=== PATIENT | female | born 1990 | race Caucasian/White ===

== ENCOUNTER 2018-10-03 15:20 | Emergency (ER) | payer MEDICAID, SELFPAY ==
[2018-10-03 15:23] VITALS: BP 119/68; PULSE 94; RESP 12; TEMP 36.5; O2SAT 97
--- NOTE | 2018-10-03 16:21 | ED.GENADUL_ITS ---
Discharge Plan Disposition Patient Disposition: HOME Condition: Fair Discharge Details Chief Complaint: Nk/Back Pain Clinical Impression: Muscle spasms of neck, Acute neck pain Primary Care Provider: Katie Campbell ED Provider: Ame Duggan Home Meds and New Rx's Prescriptions: New ibuprofen 600 mg tablet 600 mg PO QID PRN (Reason: pain) Qty: 20 RF: 0 diazepam [Valium] 5 mg tablet 5 mg PO TID Qty: 7 RF: 0 Continued sertraline 50 MG tablet 50 mg PO DAILY RF: 0 Discharge Instructions Instructions: Diazepam (By mouth), Neck Pain (ED) Additional Instructions: Encourage hydration. Take 1,000mg of Tylenol every 6 hours as needed, 600mg of IBuprofen every 6 hours as needed for discomfort. Valium as prescribed for muscle spasm, do not breast feed while taking this medication. Stretching as advised, frequent ambulation. Heat or ice to affected area. If you develop altered sensation, increased pain or other new/worsening symptoms please seek care urgently once again. PT referral attached. If your symptoms persist over the next week please follow up with primary care. Stand Alone Forms: Physical Therapy Referral, Work Release Referrals: Katie Campbell [Primary Care Provider] - Discharge Data Discharge Date/Time-TO BE ENTERED AT DEPARTURE: 10/03/18 17:43 Medical Decision Making Patient 28-year-old female presenting today with chief complaint of right-sided neck pain. She reports that yesterday, while at work, she was cleaning while up on a ladder. States that she had a sudden twisting motion and effort to catch herself pole of the right side of her neck. States that last night the pain was minimal. She was treating last night with Tylenol and ibuprofen as well as a heat pad. However, when she woke today she noted she was unable to turn her head. Patient has very limited range of motion particularly with rotational movements. Head is more comfortable slightly tilted to the right. She denies any altered sensation. No midline tenderness. Pain seems to be more along the trapezius radiating down the mid thoracic area. Good range of motion of the thoracic spine without discomfort. Patient is also having limited range of motion of the right shoulder as described increased pain in the right lateral side of the neck. Denies any fall or other injury at the time of the incident. Patient is actively breast-feeding. Neuro exam is intact Patient is breast-feeding, this does limit our treatment options. However, the patient reports she has a large supply at home and prefer treatment and disposing of milk over holding off on treatment at this time. Patient has been taking minimal doses of Tylenol and ibuprofen. I will augment the used to appropriate dosing, apply Lidoderm patch and Valium. We did discuss the risks and benefits associated with medication, particularly Valium, and its risks associated to if she continues to breast-feed AFter medication, patient is feeling improved. Her ROM is greatly improved. She is satisfied with this improvement and is requesting discharge at this time. ROM exercises given, she was able to demonstrate these in the office. Encouraged massage, heat/ice. Advised on home remedies and OTC medications that can help with these symptoms. Valium was very successful, will give small amount ot help with acute muscle spasm. PT referral given. Encouraged hydration. ADvised f/u with PCP in one week if symptoms persist. All of her questions and concerns were addressed, she is in agreement with this plan. HPI General Mode of arrival: ambulatory . Date/Time Provider Initiated Documentation: 10/03/18 15:42 . Limitations to Documentation: no limitations . Information obtained by: patient . History of Present Illness 28 year old F presents to the emergency department with the chief complaint of right sided neck pain, described as severe, Quality is described as aching and other (tight), and is localized to the neck. Patient reports radiation to back (right side upper back). Patient started experiencing this day(s) (1) and it has been constant. No relieving factors improve symptom(s), Immoblization worsens symptoms and Movement worsens symptoms . Patient notes denies chest pain, cough, fever/chills, headaches, loss of appetite, nausea/vomiting, rash, shortness of breath and weakness. Patient did receive the following treatments prior to arrival, NSAID and heat therapy Related Data Home Medications Medication Instructions Recorded Confirmed sertraline 50 mg PO DAILY 10/31/17 10/03/18 diazepam [Valium] 5 mg PO TID #7 tab 10/03/18 ibuprofen 600 mg PO QID PRN #20 tab 10/03/18 Previous Rx's Medication Instructions Recorded diazepam [Valium] 5 mg PO TID #7 tab 10/03/18 ibuprofen 600 mg PO QID PRN #20 tab 10/03/18 Allergies Allergy/AdvReac Type Severity Reaction Status Date / Time spironolactone AdvReac Intermediate Diarrhea Verified 10/03/18 15:26 metformin AdvReac Diarrhea Verified 10/03/18 15:26 General Stated Complaint: Nk/Back Pain VISHNU: 4 Review of Systems Constitutional Reports as per HPI, Denies chills, Denies fever(s), Denies headache(s) and Denies weakness ENT Denies headache(s) and Reports neck pain Cardiovascular Reports as per HPI Respiratory Reports as per HPI and Denies cough Musculoskeletal Reports as per HPI, Reports back pain, Denies deformity, Denies joint swelling, Reports limited range of motion, Reports muscle cramps, Denies muscle weakness, Reports neck pain, Denies numbness, Denies radiating pain into limb, Reports stiffness and Denies tingling Integumentary/Breasts Reports as per HPI, Denies rash and Denies wounds Neurologic Denies headache(s), Denies numbness, Denies tingling and Denies weakness [facility] Social History Smoking/Tobacco Use Status: Current every day Exam Const General: cooperative, healthy appearing, comfortable, no acute distress, well developed and well groomed Nutritional Appearance: average body habitus and well nourished Orientation: alert and awake Neck Neck: limited ROM (limited ROM in all avila), no lymphadenopathy, trachea midline, supple, no anterior neck swelling and no lymphadenopathy noted Thyroid: thyroid normal Chest Chest: normal inspection of the chest, normal palpation of entire chest wall, no crepitus, no localized rib tenderness, no tenderness and No rash Resp Effort & Inspection: normal respiratory effort, able to speak in complete sentences and no respiratory distress Auscultation: clear to auscultation bilaterally, no rales, no rhonchi and no wheezes Cardio Rate: regular rate Rhythm: regular rhythm Heart Sounds: S1 normal and S2 normal Back/Spine/Pelvis Back: no CVA tenderness Cervical Spine: No cervical ROM normal (right sided [place]), cervical muscular tenderness, pain with cervical ROM, No scars present, cervical spasm (right side) and No cervical spinal tenderness (pain lateral to midline) Thoracic/Lumbar Spine: thoracic and lumbar spine normal to inspection and thoraco-lumbar ROM normal Skin General skin exam: no rashes or lesions noted Lesions: no lesions Rashes: no rashes Trauma: no lacerations or abrasions Neuro General: alert and awake Cognition: normal cognition Speech: speech normal Gait: normal gait Motor: muscle tone normal throughout Sensory Exam: no sensory deficits noted Extrem Right upper extremity: normal capillary refill, no joint enlargement, shoulder/upper arm Details: normal to inspection; no tenderness, no swelling and ROM limited (limited as above) and elbow/forearm Details: normal to inspection and normal ROM; ROM limited (FE causes discomfort in the right side of the neck, no pain with palpation.) Psych Appearance: grossly normal and well kempt Mental Status: mental status grossly normal Speech and Movement: speech and movement normal Course Vital Signs Temperature 36.5 C 10/03/18 15:23 Pulse 94 H 10/03/18 15:23 Respiratory Rate 12 10/03/18 15:23 Blood Pressure 119/68 10/03/18 15:23 Pulse Oximetry 97 10/03/18 15:23 Temperature 36.5 C 10/03/18 15:23 Temperature Source Temporal Artery Scan 10/03/18 15:23 Pulse 94 H 10/03/18 15:23 Respiratory Rate 12 10/03/18 15:23 Respiratory Effort Non-Labored 10/03/18 15:25 Blood Pressure 119/68 10/03/18 15:23 Blood Pressure Position Sitting 10/03/18 15:23 Pulse Oximetry 97 10/03/18 15:23 Oxygen Delivery Method Room Air 10/03/18 15:23 Oxygen Flow Rate 0 10/03/18 15:23 Pain Level 8 10/03/18 15:27
[2018-10-03] MEDS: Acetaminophen 500 MG TAB PO (16:33)
[2018-10-03] MEDS: Ibuprofen 400 MG TAB PO (16:33)
[2018-10-03] MEDS: Lidocaine 5% Patch 1 PATCH TP ×2 (16:33→17:39)
[2018-10-03] MEDS: Diazepam 5 MG TAB PO (16:33)
[2018-10-03] MEDS: Diazepam 5 MG TAB 10 MG PO (17:38)
== END 2018-10-03 17:43 | disposition home or self-care (01) ==
PROVIDERS: Emergency Provider Physician Assistant; PCP Nurse Practitioner Adult Health
DX: M54.2 Cervicalgia (principal); M62.838 Other muscle spasm; Y99.0 Civilian activity done for income or pay
CPT/HCPCS: 99283

== ENCOUNTER 2018-10-19 13:01 | Emergency (ER) | payer OTHER, SELFPAY ==
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
[2018-10-19 13:10] VITALS: BP 117/60; PULSE 74; RESP 16; TEMP 36.5; O2SAT 99
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
[2018-10-19] MEDS: Ibuprofen 600 MG TAB PO (13:22)
== END 2018-10-19 14:02 | disposition home or self-care (01) ==
PROVIDERS: Emergency Provider Emergency Medicine; PCP Nurse Practitioner Adult Health
DX: S16.1XXA Strain of muscle, fascia and tendon at neck level, initial encounter (principal); M54.6 Pain in thoracic spine; V43.12XA Car passenger injured in collision with other type car in nontraffic accident, initial encounter
CPT/HCPCS: 99284; 71046; 72125; L0172

== ENCOUNTER 2019-03-04 14:28 | Emergency (ER) | payer OTHER, SELFPAY ==
[2019-03-04 14:36] VITALS: BP 115/60; PULSE 73; RESP 16; TEMP 36.9; O2SAT 96
--- NOTE | 2019-03-04 14:56 | W.ED.GENAD ---
Discharge Plan Disposition Patient Disposition: HOME Condition: Stable Discharge Details Chief Complaint: Orthopedic Clinical Impression: Sprain of right shoulder Primary Care Provider: Katie Campbell ED Provider: Carlyle aMncini Home Meds and New Rx's Prescriptions: No Action ibuprofen 600 mg tablet 600 mg PO QID PRN (Reason: pain) Qty: 20 RF: 0 diazepam [Valium] 5 mg tablet 5 mg PO TID Qty: 7 RF: 0 sertraline 50 MG tablet 50 mg PO DAILY RF: 0 Discharge Instructions Instructions: Shoulder Sprain (ED) Additional Instructions: follow up with your primary care provider within 2 weeks especially if pain continues you can take 1000mg tylenol and 600mg ibuprofen every 6 hours for pain as needed if you have severe worsening symptoms or new symptoms such as difficulty breathing return to the emergency department Stand Alone Forms: Work Release Medical Decision Making 28 yo female states she was working at [employer] and 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 Denies any falls or other trauma. Has pain in the posterior right shoulder, full rom though with pain, no erythema, warmth or fevers to suggest septic joint and given lack of trauma doubt fx and do not feel xray indicated. Has intact distal pulses and sensation so doubt neurovascular injury. I suspect shoulder strain vs overuse injury vs less likely rotator cuff injury. Will have her f/u with pcp and return if new symptoms develop Differential Diagnosis strain, rotator cuff injury HPI General Mode of arrival: ambulatory. Date/Time Provider Initiated Documentation: 03/04/19 14:44. Limitations to Documentation: no limitations. Information obtained by: patient. History of Present Illness 28 year old F presents to the emergency department with the chief complaint of right shoulder pain, described as moderate, Quality is described as aching, and is localized to the right and upper extremity. Patient started experiencing this day(s) (1) and it has been constant. Rest improves symptom(s), Movement worsens symptoms . Patient notes no other symptoms.. Patient did receive the following treatments prior to arrival, NSAID Related Data Home Medications Medication Instructions Recorded Confirmed sertraline 50 mg PO DAILY 10/31/17 03/04/19 diazepam [Valium] 5 mg PO TID #7 tab 10/03/18 03/04/19 ibuprofen 600 mg PO QID PRN #20 tab 10/03/18 03/04/19 Previous Rx's Medication Instructions Recorded diazepam [Valium] 5 mg PO TID #7 tab 10/03/18 ibuprofen 600 mg PO QID PRN #20 tab 10/03/18 Allergies Allergy/AdvReac Type Severity Reaction Status Date / Time spironolactone AdvReac Intermediate Diarrhea Verified 03/04/19 14:39 metformin AdvReac Diarrhea Verified 03/04/19 14:39 General Stated Complaint: Orthopedic VISHNU: 4 Review of Systems Review of Systems All systems reviewed & are unremarkable except as noted in HPI and below Constitutional Denies chills, Denies fever(s) and Denies weakness Cardiovascular Denies chest pain and Denies dyspnea Respiratory Denies dyspnea Gastrointestinal Denies vomiting Neurologic Denies weakness PFS Social History Smoking/Tobacco Use Status: Current every day Drug use: Never Do you feel safe in your relationship?: Yes Exam Const General: no acute distress Orientation: alert HENMT Head: normal to inspection Ears: external ears normal General nose exam: external nose normal Mouth: moist mucous membranes Eyes General: appearance normal, both eyes and all related structures Neck Neck: normal visual inspection Resp Effort & Inspection: normal respiratory effort and able to speak in complete sentences Cardio Rate: regular rate Skin General skin exam: no rashes or lesions noted Neuro General: alert and oriented x3 Extrem General: normal to inspection Psych Mental Status: mental status grossly normal Course Vital Signs Temperature 36.9 C 03/04/19 14:36 Pulse 73 03/04/19 14:36 Respiratory Rate 16 03/04/19 14:36 Blood Pressure 115/60 03/04/19 14:36 Pulse Oximetry 96 03/04/19 14:36 Temperature 36.9 C 03/04/19 14:36 Temperature Source Skin 03/04/19 14:36 Pulse 73 03/04/19 14:36 Respiratory Rate 16 03/04/19 14:36 Respiratory Effort Non-Labored 03/04/19 14:36 Blood Pressure 115/60 03/04/19 14:36 Blood Pressure Position Sitting 03/04/19 14:36 Pulse Oximetry 96 03/04/19 14:36 Oxygen Delivery Method Room Air 03/04/19 14:36 Oxygen Flow Rate 0 03/04/19 14:36 Pain Level 7 03/04/19 14:36
--- NOTE | 2019-03-04 15:00 | ED.GENADUL_ITS ---
Discharge Plan Disposition Patient Disposition: HOME Condition: Stable Discharge Details Chief Complaint: Orthopedic Clinical Impression: Sprain of right shoulder Primary Care Provider: Katie Campbell ED Provider: Carlyle Mancini Home Meds and New Rx's Prescriptions: No Action ibuprofen 600 mg tablet 600 mg PO QID PRN (Reason: pain) Qty: 20 RF: 0 diazepam [Valium] 5 mg tablet 5 mg PO TID Qty: 7 RF: 0 sertraline 50 MG tablet 50 mg PO DAILY RF: 0 Discharge Instructions Instructions: Shoulder Sprain (ED) Additional Instructions: follow up with your primary care provider within 2 weeks especially if pain continues you can take 1000mg tylenol and 600mg ibuprofen every 6 hours for pain as needed if you have severe worsening symptoms or new symptoms such as difficulty breathing return to the emergency department Stand Alone Forms: Work Release Medical Decision Making 28 yo female states she was working at [employer] and 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 Denies any falls or other trauma. Has pain in the posterior right shoulder, full rom though with pain, no erythema, warmth or fevers to suggest septic joint and given lack of trauma doubt fx and do not feel xray indicated. Has intact distal pulses and sensation so doubt neurovascular injury. I suspect shoulder strain vs overuse injury vs less likely rotator cuff injury. Will have her f/u with pcp and return if new symptoms develop Differential Diagnosis strain, rotator cuff injury HPI General Mode of arrival: ambulatory . Date/Time Provider Initiated Documentation: 03/04/19 14:44 . Limitations to Documentation: no limitations . Information obtained by: patient . History of Present Illness 28 year old F presents to the emergency department with the chief complaint of right shoulder pain, described as moderate, Quality is described as aching, and is localized to the right and upper extremity. Patient started experiencing this day(s) (1) and it has been constant. Rest improves symptom(s), Movement worsens symptoms . Patient notes no other symptoms.. Patient did receive the following treatments prior to arrival, NSAID Related Data Home Medications Medication Instructions Recorded Confirmed sertraline 50 mg PO DAILY 10/31/17 03/04/19 diazepam [Valium] 5 mg PO TID #7 tab 10/03/18 03/04/19 ibuprofen 600 mg PO QID PRN #20 tab 10/03/18 03/04/19 Previous Rx's Medication Instructions Recorded diazepam [Valium] 5 mg PO TID #7 tab 10/03/18 ibuprofen 600 mg PO QID PRN #20 tab 10/03/18 Allergies Allergy/AdvReac Type Severity Reaction Status Date / Time spironolactone AdvReac Intermediate Diarrhea Verified 03/04/19 14:39 metformin AdvReac Diarrhea Verified 03/04/19 14:39 General Stated Complaint: Orthopedic VISHNU: 4 Review of Systems Review of Systems All systems reviewed & are unremarkable except as noted in HPI and below Constitutional Denies chills, Denies fever(s) and Denies weakness Cardiovascular Denies chest pain and Denies dyspnea Respiratory Denies dyspnea Gastrointestinal Denies vomiting Neurologic Denies weakness PFS Social History Smoking/Tobacco Use Status: Current every day Drug use: Never Do you feel safe in your relationship?: Yes Exam Const General: no acute distress Orientation: alert HENMT Head: normal to inspection Ears: external ears normal General nose exam: external nose normal Mouth: moist mucous membranes Eyes General: appearance normal, both eyes and all related structures Neck Neck: normal visual inspection Resp Effort & Inspection: normal respiratory effort and able to speak in complete sentences Cardio Rate: regular rate Skin General skin exam: no rashes or lesions noted Neuro General: alert and oriented x3 Extrem General: normal to inspection Psych Mental Status: mental status grossly normal Course Vital Signs Temperature 36.9 C 03/04/19 14:36 Pulse 73 03/04/19 14:36 Respiratory Rate 16 03/04/19 14:36 Blood Pressure 115/60 03/04/19 14:36 Pulse Oximetry 96 03/04/19 14:36 Temperature 36.9 C 03/04/19 14:36 Temperature Source Skin 03/04/19 14:36 Pulse 73 03/04/19 14:36 Respiratory Rate 16 03/04/19 14:36 Respiratory Effort Non-Labored 03/04/19 14:36 Blood Pressure 115/60 03/04/19 14:36 Blood Pressure Position Sitting 03/04/19 14:36 Pulse Oximetry 96 03/04/19 14:36 Oxygen Delivery Method Room Air 03/04/19 14:36 Oxygen Flow Rate 0 03/04/19 14:36 Pain Level 7 03/04/19 14:36
== END 2019-03-04 15:15 | disposition home or self-care (01) ==
PROVIDERS: Emergency Provider Emergency Medicine; PCP Nurse Practitioner Adult Health
DX: S43.401A Unspecified sprain of right shoulder joint, initial encounter (principal); X50.0XXA Overexertion from strenuous movement or load, initial encounter
CPT/HCPCS: 99282; L3650

== ENCOUNTER 2019-04-14 13:59 | Outpatient (CLI) | payer OTHER, SELFPAY ==
--- NOTE | 2019-04-14 13:25 | DI.RAD_ITS ---
SYMPTOMS/DIAGNOSIS: SHOULDER INJURY RIGHT SHOULDER: There is no evidence of a fracture or dislocation. No bony or joint abnormality is identified.
== END 2019-04-14 14:19 ==
PROVIDERS: PCP Nurse Practitioner Adult Health; Visit Provider Student in an Organized Health Care Education/Training Program
DX: S49.91XA Unspecified injury of right shoulder and upper arm, initial encounter (principal); M25.511 Pain in right shoulder
CPT/HCPCS: 73030

== ENCOUNTER 2019-05-25 00:41 | Outpatient (CLI) | payer MEDICAID, SELFPAY ==
--- NOTE | 2019-05-25 09:00 | DI.MRI_ITS ---
SYMPTOM/DIAGNOSIS: STRAIN RT SHOULDER S46.911d MRI RIGHT SHOULDER: Comparison is made with plain film dated 14 April 2019. Proton density and FS T2 axial and coronal and T1 FS T2 sagittal sequences were performed. There is some thickening and high signal in supraspinatus tendon which could represent a partial tear vs tendinitis. The infraspinatus, subscapularis and biceps tendons appear intact. No gross labral defects are seen. There is no joint effusion. IMPRESSION: Partial tear vs tendinitis of the supraspinatus.
== END 2019-05-25 01:01 ==
PROVIDERS: PCP Nurse Practitioner Adult Health; Visit Provider Family Medicine
DX: M25.511 Pain in right shoulder (principal); S46.911A Strain of unspecified muscle, fascia and tendon at shoulder and upper arm level, right arm, initial encounter
CPT/HCPCS: 73221

== ENCOUNTER 2019-08-02 22:45 | Emergency (ER) | payer OTHER, SELFPAY ==
[2019-08-02 22:52] VITALS: BP 121/76; PULSE 76; RESP 18; TEMP 36.4; O2SAT 100
--- NOTE | 2019-08-02 23:08 | ED.GENADUL_ITS ---
Discharge Plan Disposition Patient Disposition: HOME Condition: Good Discharge Details Chief Complaint: GenMedical Clinical Impression: Chemical burn Primary Care Provider: Katie Campbell ED Provider: Sukhjinder Christensen Discharge Instructions Additional Instructions: Continue irrigation at home until pain has mostly resolved. Apply antibiotic ointment to the red area and keep covered. Use ibuprofen or acetaminophen for discomfort. Return to the emergency department if you develop increasing pain, redness, skin sloughing, swelling, other concerns or problems. Stand Alone Forms: Work Release Medical Decision Making Patient discussed with poison control. This is a corrosive alkali. Recommendation is to continue flushing irrigation until burning sensation resolved and then treat skin lesions as a burn. Patient taken to [place] shower where she continued to irrigate. Reports pain is better. Would like to go home and continue showering at her house. Will give Motrin here. Recommend antibiotic ointment to area of redness. Return to ED if increasing pain, redness, swelling, other concerns or problems. HPI General Mode of arrival: ambulatory . Date/Time Provider Initiated Documentation: 08/02/19 22:58 . Limitations to Documentation: no limitations . Information obtained by: patient and RN notes reviewed . HPI Narrative: Patient presents to ED from work with chemical exposure to left thigh. Patient was cleaning equipment with product named [employer] #[id number]. She spilled some on her left lateral thigh. She flushed the area for 15 minutes or so at work. She has a burning feeling involving the area. There is a red area present as well. Denies getting chemical in eyes, inhalation or ingestion. Related Data Allergies Allergy/AdvReac Type Severity Reaction Status Date / Time spironolactone AdvReac Intermediate Diarrhea Verified 08/02/19 22:59 metformin AdvReac Diarrhea Verified 08/02/19 22:59 General Stated Complaint: GenMedical VISHNU: 4 Review of Systems Constitutional Constitutional: Denies weakness Musculoskeletal Musculoskeletal: Denies numbness and Denies tingling Integumentary/Breasts Skin/Breast: Reports erythema and Reports skin pain Neurologic Neurologic: Denies numbness, Denies tingling, Denies paresthesias and Denies weakness [facility] Social History Smoking/Tobacco Use Status: Current every day Tobacco Type: cigarettes Alcohol Intake: never Drug use: Never Substance use type: does not use Do you feel safe at home: Yes Do you feel safe in your relationship?: Yes Exam Const General: cooperative, comfortable and no acute distress Orientation: alert and oriented x3 Skin General skin exam: erythema Lesions: lesion noted (3 x 5 cm erythematous raised area center left lateral thigh) Trauma: no lacerations or abrasions Wounds: no wounds Extrem General: normal to inspection, full ROM and no clubbing, cyanosis or edema Course Vital Signs Vital signs: Vital Signs Temperature 97.5 F L 08/02/19 22:52 Pulse 76 08/02/19 22:52 Respiratory Rate 18 08/02/19 22:52 Blood Pressure 121/76 08/02/19 22:52 Pulse Oximetry 100 08/02/19 22:52 Temperature 97.5 F L 08/02/19 22:52 Temperature Source Skin 08/02/19 22:52 Pulse 76 08/02/19 22:52 Respiratory Rate 18 08/02/19 22:52 Respiratory Effort 08/02/19 23:01 Respiratory Depth Normal 08/02/19 23:01 Respiratory Pattern Normal 08/02/19 23:01 Blood Pressure 121/76 08/02/19 22:52 Blood Pressure Position Sitting 08/02/19 22:52 Pulse Oximetry 100 08/02/19 22:52 Oxygen Delivery Method Room Air 08/02/19 22:52 Oxygen Flow Rate 0 08/02/19 22:52 Pain Level 9 08/02/19 22:52
--- NOTE | 2019-08-02 23:40 | NUR.NOTE ---
[id number]-per Dr Christensen, pt escorted to decon/shower and instructed to rinse burn area until site is no longer pink/red with pt verbal understanding. will monitor. Nursing Note:
--- NOTE | 2019-08-02 23:44 | NUR.NOTE ---
0432-pt exited shower, stating david rinsed it as long as I want to. im not doing any more. rash continues to bed red/raised and scattered, not improving in size/color, but pt states pain is reduced, continuing to burn, rating pain 6/10. no drainage, no blisters noted. Dr Christensen advised with no new orders recieved. Nursing Note:
[2019-08-03] MEDS: Ibuprofen 600 MG TAB PO (00:06)
== END 2019-08-03 00:10 | disposition home or self-care (01) ==
PROVIDERS: Emergency Provider Emergency Medicine; PCP Nurse Practitioner Adult Health
DX: T55.1X1A Toxic effect of detergents, accidental (unintentional), initial encounter (principal); X58.XXXA Exposure to other specified factors, initial encounter; Y99.0 Civilian activity done for income or pay
CPT/HCPCS: 99282

== ENCOUNTER 2020-03-18 00:28 | Observation (INO) | payer MEDICAID, SELFPAY ==
[2020-03-18] MEDS: Lactated Ringers 1,000 ML 1000 ML IV ×2 (03:44→04:15)
== END 2020-03-18 04:26 | disposition home or self-care (01) ==
LOC: NUR 05:02 → OBS 08:10
PROVIDERS: Admitting Provider Family Medicine; PCP Nurse Practitioner Adult Health; Visit Provider Family Medicine
DX: O47.03 False labor before 37 completed weeks of gestation, third trimester (principal); Z3A.35 35 weeks gestation of pregnancy
CPT/HCPCS: 96360; 59025; G0378

== ENCOUNTER 2020-03-28 14:25 | Inpatient (IN) | payer MEDICAID, SELFPAY ==
[2020-03-28 17:01] LABS: HCT 35.5 % (36.0-46.0); HGB 12.1 g/dL (12.0-15.5); Mean Corp. HGB Concentration 34.1 g/dL (32.0-36.0); Mean Corpuscular Hemoglobin 32.2 pg (27.0-33.0); Mean Corpuscular Volume 94.4 fL (80-95); Mean Platelet Volume 11.1 fL (8.0-11.0); Platelet Count 331 x1000/uL (130-400); RBC 3.76 m/cumm (4.00-5.20); RBC Distribution Width 13.3 % (11.7-14.6); White Blood Cell Count 15.61 k/cumm (4.4-10.8)
[2020-03-28] MEDS: Normal Saline Flush 10 ML SYR IVP (17:28)
--- NOTE | 2020-03-28 18:58 | W.PM.HP.N ---
History of Present Illness 29 yo with ROM clear ~6:30 03/28 with some mucousy d/c. Good FMVT, no heard, visual changes. Some mild CTX talking and breathing through them - onset ~12 hrs ago. got good nihghts sleep 03/27. Last delivery 7#7oz male - - no shoulders - pit ind/aug for non-reassuring FHT - male Ric - epidural and nitrous. Seeks PPBTL - consent signed and on chart neg BGS 1 hr gst 154 - nl 3 hr GTT us and first fit with 04/18/20 as final NELLIE Mild SD risk - only due to obesity s+d PN labs per chart O: alert, comfortable, machine try out setter perrla, no thyroid palpated lungs - clear cvs - reg, no murmur ext - brisk reflexes, no edema mild hirsutism with facial hair abd - vtx by melissa, good FMVT, soft firm with mild ctx q 3-5 NST - cat 1 with mild ctx q 3-5 Ass: Now ~12 hrs post ROM with no active labor despite mild ctx for ~12 hrs. SROM confirmed in office with pooling, pos nitrazine and ferning on sterile spec. Raissa and Danilo aware of tiny increased risk for chorio with prolonged ROM and R/B of augmentation/induction to speed labor. R+B of misoprostol vs pitocin discussed - they know both can cause hyperstim and as a result FHT decels. Given her good experience with pitocin with Ric, she prefers Pit this evening. Discussed r+B of adding prophy abx given above tiny risk of chorio P: Pit - low dose protocol Add IV abx this evening Expect Low risk for SD - discussed with billing and accounting staff assistant. 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 [facility] Social History Smoking/Tobacco Use Status: Current every day Tobacco Type: cigarettes Alcohol Intake: never Drug use: Never Substance use type: does not use Do you feel safe at home: Yes Do you feel safe in your relationship?: Yes Meds Home Medications and Allergies Home Medications Medication Instructions Recorded Confirmed Type hydroxyzine HCl 25 - 50 mg PO TID PRN 03/28/20 03/28/20 History vit-iron fum-folic ac 1 tab PO DAILY 03/28/20 03/28/20 History [ Vitamin] Allergies Allergy/AdvReac Type Severity Reaction Status Date / Time spironolactone AdvReac Intermediate Diarrhea Verified 03/28/20 16:55 metformin AdvReac Diarrhea Verified 03/28/20 16:55 Results Labs Result diagrams: 03/28/20 16:45 Labs: Laboratory Results - last 24 hr 03/28/20 03/28/20 16:45 16:45 WBC 15.61 H RBC 3.76 L Hgb 12.1 Hct 35.5 L MCV 94.4 MCH 32.2 MCHC 34.1 RDW 13.3 Plt Count 331 MPV 11.1 H Patient ABO/Rh O Positive COVID-19 Screening In the past 14 days, have you traveled outside of [place]?: NO Recent travel in the [facility] within the last 14 days?: No Recent out of the country travel within the last 14 days?: No Exposure or possible exposure to illness during travel?: No Had IN PERSON contact w/suspected or confirmed C-19 person: No Have you had the following symptoms in the past few days?: No
[2020-03-28] MEDS: Penicillin G POT. 5,000,000 UNITS in Normal Saline 100 ML 200 UNITS IVPB (22:03)
[2020-03-28] MEDS: Azithromycin 500 MG VIAL (23:10)
[2020-03-29] MEDS: Penicillin G POT. 3,000,000 UNITS in Normal Saline 50 ML 100 UNITS IVPB (02:03)
[2020-03-29] MEDS: Ibuprofen 600 MG TAB PO ×4 (03:52→22:20)
[2020-03-29] MEDS: Docusate Sodium 100 MG CAP PO ×2 (03:52→22:20)
[2020-03-29] MEDS: Acetaminophen 325 MG TAB 650 MG PO ×4 (03:52→22:20)
[2020-03-29] MEDS: Hamamelis Leaf/Glycerin 100 EACH BOX PR ×2 (03:53→12:33)
[2020-03-29 08:18] LABS: COVID-19 RT-PCR UVMMC Result Negative (Negative)
[2020-03-30 06:45] LABS: HCT 31.9 % (36.0-46.0); HGB 10.5 g/dL (12.0-15.5); Mean Corp. HGB Concentration 32.9 g/dL (32.0-36.0); Mean Corpuscular Hemoglobin 31.4 pg (27.0-33.0); Mean Corpuscular Volume 95.5 fL (80-95); Mean Platelet Volume 11.2 fL (8.0-11.0); Platelet Count 260 x1000/uL (130-400); RBC 3.34 m/cumm (4.00-5.20); RBC Distribution Width 13.6 % (11.7-14.6); White Blood Cell Count 10.74 k/cumm (4.4-10.8)
[2020-03-30] MEDS: Acetaminophen 325 MG TAB 650 MG PO (09:00)
--- NOTE | 2020-03-30 10:17 | HPE_ITS ---
History of Present Illness change name to d/c summary Lisa and he daughter are doing super refer to [facility] for details is feeding well - pooping and peeing well expected wt loss ~4% benign d/c exams mom is doing all self care f/u plans set for sat am in [place] - she knows to call or seek care sooner if issues/problems Kristine Coleman [facility] Social History Smoking/Tobacco Use Status: Current every day Tobacco Type: cigarettes Alcohol Intake: never Drug use: Never Substance use type: does not use Do you feel safe at home: Yes Do you feel safe in your relationship?: Yes Meds Home Medications and Allergies Home Medications Medication Instructions Recorded Confirmed Type hydroxyzine HCl 25 - 50 mg PO TID PRN 03/28/20 03/28/20 History vit-iron fum-folic ac 1 tab PO DAILY 03/28/20 03/28/20 History [ Vitamin] Allergies Allergy/AdvReac Type Severity Reaction Status Date / Time spironolactone AdvReac Intermediate Diarrhea Verified 03/28/20 16:55 metformin AdvReac Diarrhea Verified 03/28/20 16:55 Results Labs Result diagrams: 03/30/20 06:10 Labs: Laboratory Results - last 24 hr 03/30/20 06:10 WBC 10.74 RBC 3.34 L Hgb 10.5 L Hct 31.9 L MCV 95.5 H MCH 31.4 MCHC 32.9 RDW 13.6 Plt Count 260 MPV 11.2 H COVID-19 Screening Have you, or has anyone in your household, traveled outside of [place] in the last 14 days?: NO Recent travel in the [facility] within the last 14 days?: No Recent out of the country travel within the last 14 days?: No Exposure or possible exposure to illness during travel?: No Had IN PERSON contact w/suspected or confirmed C-19 person: No Have you had the following symptoms in the past few days?: No
[2020-03-30] MEDS: Hamamelis Leaf/Glycerin 100 EACH BOX PR (11:00)
== END 2020-03-30 11:00 | disposition home or self-care (01) | DRG 807 ==
PROVIDERS: Admitting Provider Family Medicine; PCP Nurse Practitioner Adult Health; Visit Provider Family Medicine
DX: O76 Abnormality in fetal heart rate and rhythm complicating labor and delivery (principal); Z37.0 Single live birth; O69.89X0 Labor and delivery complicated by other cord complications, not applicable or unspecified; O42.02 Full-term premature rupture of membranes, onset of labor within 24 hours of rupture; Z3A.37 37 weeks gestation of pregnancy; O99.214 Obesity complicating childbirth; O99.334 Smoking (tobacco) complicating childbirth; O99.344 Other mental disorders complicating childbirth; F17.210 Nicotine dependence, cigarettes, uncomplicated; E66.9 Obesity, unspecified; F41.8 Other specified anxiety disorders; Z03.818 Encounter for observation for suspected exposure to other biological agents ruled out
CPT/HCPCS: 36415; 85027; 86850; 86900; 86901; 99222; NC; U0003; G0378; J0456; J2540

== ENCOUNTER 2020-05-06 07:11 | Outpatient (CLI) | payer MEDICAID, SELFPAY ==
[2020-05-07 17:55] LABS: COVID-19 RT-PCR Result NEGATIVE (Negative)
== END 2020-05-06 07:31 ==
PROVIDERS: PCP Nurse Practitioner Adult Health; Visit Provider Obstetrics & Gynecology Gynecology
DX: Z11.59 Encounter for screening for other viral diseases (principal); Z01.818 Encounter for other preprocedural examination
CPT/HCPCS: U0003

== ENCOUNTER 2020-05-08 02:26 | Outpatient (CLI) | payer MEDICAID, SELFPAY ==
[2020-05-08 11:41] LABS: Abs Immature Grans 0.02 10^3/uL (0.0-0.06); Absolute Basophil Count 0.03 10^3/uL (0.0-0.2); Absolute Eosinophil Count 0.07 10^3/uL (0.0-0.7); Absolute Lymphocyte Count 2.17 10^3/uL (1.2-3.4); Absolute Monocyte Count 0.32 10^3/uL (0.1-0.8); Absolute Neutrophil Count 5.51 10^3/uL (1.2-6.7); Basophils % 0.4; Eosinophils % 0.9; HCT 43.5 % (36.0-46.0); HGB 14.5 g/dL (11.2-15.7); Immature Grans % 0.2; Lymphocytes % 26.7; MCH 31.3 pg (27.0-33.0); MCHC 33.3 % (32.0-36.0); MCV 93.8 fL (80-95); MPV 10.6 fL (8.0-11.0); Monocytes % 3.9; Neutrophils % 67.9; Nucleated RBC 0 %; Platelet Count 200 10^3/uL (130-400); RBC 4.64 10^6/uL (3.93-5.22); RDW 12.7 % (11.7-14.6); RDW-SD 43.8 fL; WBC 8.12 10^3/uL (4.4-10.8)
[2020-05-08 12:40] LABS: HCG Quant, Pregnancy 2 mIU/mL (1-3)
== END 2020-05-08 02:46 ==
PROVIDERS: Obstetrics & Gynecology; PCP Nurse Practitioner Adult Health; Visit Provider Obstetrics & Gynecology Gynecology
DX: Z01.818 Encounter for other preprocedural examination (principal)
CPT/HCPCS: 36415; 86850; 86900; 86901; 84702; 85025

== ENCOUNTER 2020-05-10 08:31 | Day surgery (SDC) | payer MEDICAID, SELFPAY ==
[2020-05-10] VITALS (7 sets, daily range): BP systolic 102–130; BP diastolic 62–88; PULSE 64–83; RESP 12–20; TEMP 36.3–36.7; O2SAT 96–99
[2020-05-10] MEDS: Lactated Ringers 1,000 ML 125 ML IV ×2 (09:30→10:35)
[2020-05-10] MEDS: Acetaminophen 500 MG TAB 1000 MG PO (10:39)
[2020-05-10] MEDS: Bupivacaine 0.25% Pres-Free 30 ML VIAL (11:30)
--- NOTE | 2020-05-10 11:45 | FALL_PTH ---
PATIENT: Lisa De La Cruz LOC: [facility] U#:[id number] AGE/SX: 29/F ROOM: RE05/10/[address]: Nory Martinez : 1990 BED: DIS: 05/10/2020 SPEC #: [id number] RECD: 05/10/20 12:36 STATUS: EZE REQ #: [id number] SOLEDAD: 05/10/20 11:[address]: Nory Martinez DEPT: Surgical Specimen RECD BY: Jewels Romero ENTERED: 05/10/20 12:39 SP TYPE: Fall OTHR DR: Katie Campbell Tissues: 1 - FALLOPIAN TUBE (STERILIZATION) 2 - FALLOPIAN TUBE (STERILIZATION) Procedures: GROSS AND MICRO LEVEL 2 Comments: [id number]
--- NOTE | 2020-05-10 12:07 | ROE_ITS ---
Date of service: 05/10/20 Time of Service: 12:07 Operative Note Operative Note DATE OF PROCEDURE: 05/10/20 PRE-OP DIAGNOSIS: Multiparity desires sterilization POST-OP DIAGNOSIS: same PROCEDURE: Laparoscopic bilateral salpingectomy SURGEON: Nory Martinez DERMATOLOGY SALES REPRESENTATIVE: Chloe Petersen ANESTHESIA: GETA ESTIMATED BLOOD LOSS: 0 PATHOLOGY: other (Bilateral fallopian tubes to pathology) COMPLICATIONS: None Patient was transported to: same day Patient's condition: stable Indications: 29-year-old female who expressed desire for permanent sterilization during her and in the period. She was offered alternatives including long-acting reversible contraception which she declined. Findings: Normal pelvis normal adnexa normal upper abdomen. Procedure Description: Patient was taken to the operating room where she was placed in the dorsal supine position and general endotracheal anesthesia was administered without difficulty. Patient was prepped and draped in the usual sterile fashion. Surgical timeout was performed, SCDs were in place no antibiotics were required. Using a scalpel a 12 mm vertical skin incision was made in the umbilical fold and through it was introduced a varies needle attached to carbon dioxide gas. Intra-abdominal placement with a varies needle was confirmed by drop in the intra-abdominal pressure upon entry. Pneumoperitoneum was achieved a 12 mm port was placed through the vertical umbilical incision and intra-abdominal placement confirmed visually. Patient was placed in Trendelenburg and two 5 mm ports were placed in the right and left lower quadrants respectively under direct visualization. Prior to insertion both sites were infiltrated with quarter percent Marcaine and a 5 mm skin incision was made using a scalpel. The pelvis was carefully inspected with the above-noted findings. Patient's left fallopian tube was identified followed to its fimbriated end and using a LigaSure bipolar device the attachments of the mesosalpinx surface of the ovary were sequentially clamped cauterized and transected. This allowed mobilization away from the infundibulopelvic ligament and the remaining mesosalpinx was clamped cauterized and transected to the level of the left uterine cornua. The fallopian tube was then clamped cauterized and transected from its attachment to the uterine cornua. It was then delivered through the 5 mm port and passed off of the operative field. A similar technique was performed on the contralateral fallopian tube. At the completion of the procedure both pedicles were noted to be hemostatic. Infection visualization both 5 mm trochars were removed the patient was then a medic Trendelenburg and supine position pneumoperitoneum was reduced followed by the removal of the 12 mm umbilical port. The rectus fascia was grasped with Princess clamps and reapproximated with interrupted suture of 0 Vicryl. The skin of all trocar sites was then reapproximated with subcuticular suture of 4-0 Monocryl followed by skin glue. The patient was then awakened extubated and transported recovery area in stable condition. All sponge lap and needle counts are correct x2.
--- NOTE | 2020-05-10 12:10 | W.PM.DSUDISC ---
Discharge Plan Disposition Patient Disposition: HOME Condition: Good Discharge Details Reason For Visit: Laparoscopic bilateral salpingectomy Attending Provider: Nory Martinez Primary Care Provider: Katie Campbell Home Meds and New Rx's Prescriptions: No Action Vitamin 27 mg iron- 0.8 mg Tablet 1 tab PO DAILY RF: 0 Discharge Instructions Stand Alone Forms: DSU Post Gynecology Surgery Activity:: Activity as Tolerated Diet:: As Tolerated Discharge Orders Discharge Orders: Discharge Order (Routine); Ordered 05/10/20 Ordered By: Nory Martinez DS: Diagnosis Discharge Diagnosis (1) History of tubal ligation: Status: Chronic
[2020-05-10] MEDS: HYDROmorphone 2 MG/ML VIAL IVP ×2 (12:40→12:50)
[2020-05-10] MEDS: HYDROcodone 5/Acetaminophen 325 TAB PO (13:25)
== END 2020-05-10 14:07 | disposition home or self-care (01) ==
PROVIDERS: PCP Nurse Practitioner Adult Health; Visit Provider Obstetrics & Gynecology Gynecology
PROC: (CPT 58661; principal; 2020-05-10 10:15)
DX: Z30.2 Encounter for sterilization (principal)
CPT/HCPCS: 58661; 86850; 86900; 86901; 88302; J1100; J1885; J2001; J2250; J2405; J3475

== ENCOUNTER 2020-06-12 00:59 | Outpatient (CLI) | payer MEDICAID, SELFPAY ==
--- NOTE | 2020-06-12 07:15 | DI.US_ITS ---
EXAM: US PELVIS TRANSVAGINAL CLINICAL HISTORY: positive UPT, s/p tubal sterilization,z32.01 TECHNIQUE: Ultrasound performed using standard protocol. COMPARISON: No exams were available for comparison FINDINGS: Pelvic ultrasound was performed transabdominally and transvaginally. Please see accompanying data sh eet for measurements of the pelvic structures. Uterus is normal in size and shape. Endometrial stripe is 11 millimeters in thickness and appears ho mogeneous. No focal myometrial abnormality. No free fluid identified in the cul-de-sac The ovaries have an unremarkable follicular appearance except for a 22 millimeter in diameter simple cyst of the right ovary, presumably functional. IMPRESSION: Small simple cyst right ovary versus dominant follicle, Negative pelvic ultrasound. DATA REPOSITORY:
== END 2020-06-12 01:19 ==
PROVIDERS: PCP Family Medicine; Visit Provider Obstetrics & Gynecology Gynecology
DX: N83.291 Other ovarian cyst, right side (principal)
CPT/HCPCS: 76830; 76856

== ENCOUNTER 2023-04-20 18:19 | Outpatient (CLI) | payer BC, MEDICAID, SELFPAY ==
[2023-04-20 19:25] VITALS: BP 112/74
[2023-04-20 19:36] VITALS: BP 112/72; PULSE 101; RESP 20
[2023-04-20] MEDS: diphenhydrAMINE 25 MG CAP PO (19:49)
[2023-04-20] MEDS: Acetaminophen 325 MG TAB 650 MG PO (19:49)
--- NOTE | 2023-04-20 21:05 | W.PM.OBDISCH ---
Date of service: 04/20/23 Time of Service: 21:05 DS: Diagnosis Discharge Diagnosis (1) Strain of rectus abdominis muscle: Status: Acute Asessment and Plan: bryan had routine w/e - activities at home with family. Noted onset R sided burning/muscle/rectus location on R side ~3 pm Remained steady - called and triaged to for eval No fever, URI, renal/UTI sx. no bowel issues no trauma, new activites, falls, roughhousing No ctx, bleeding, ROM Fetus quite active, remains breech no rash, N/V - ate normally both ,unch and dinner FS 89 now - taking usual lantus/insulin. no PUPPS, intraabd sx, no hx GB, pancreatitis, gastric sx No surgical hx Due for ECV in 72 hrs Surrogate parents aware. O: vitals WNL no fever Comfortable when still, sore/discomfort r ant abd muscles with even minimal mvmt drove self to [facility] - 40 min trip. Here for 2 hrs - no change in sx - tolerated tylenol and benadryl orally NST - cat 1 single ctx during the 2 hrs abd - soft, no rigid, mvmt /palpation triggers flare of r ant rectus discomfort no rash Efficiency Analyst, alert, usual cheerful affect A: Highly doubt worrisome intra abd pathology - no evidence of appy, panfreatitis, GB, gastirc dz/pathoplogy Hx, exam and course fit best with R rectuc muscle strain, perhaps small hematoma. wellbeing. No indication of abruption, labor, ROM, nephrolithiasis - no blood in urine P: Inpt eval/admission not warranted. She is comfortable to drive her self home. Cont Q4-6 tylenol, add hot packs/bath Close f/u planned by phone and in person in 10 hrs bryan knows to call and share any further sx in meantime. Will connect with surrogate parents in AM. S. [place] STAPLETON. Discharge Plan Disposition Patient Disposition: Home Condition: Good Discharge Details Reason For Visit: NST Attending Provider: Michael Coleman Primary Care Provider: Shanta Robin Home Meds and New Rx's Prescriptions: No Action insulin lispro [Humalog KwikPen Insulin] 100 unit/mL insulin pen 1 sliding scale dose subcut USEASDIRECTD insulin glargine [Lantus Solostar U-100 Insulin] 100 unit/mL (3 mL) insulin pen 60 unit subcut QPM Vitamin 27 mg iron- 0.8 mg Tablet 1 tab PO DAILY Discharge Instructions Activity:: Activity as Tolerated Equipment/Supplies:: No Equipment Needed Diet:: As Tolerated Discharge Data Discharge Date/Time-TO BE ENTERED AT DEPARTURE: 04/20/23 21:18 Discharge Physician: Michael Coleman OB:DS Summary Contraception Discussed Contraception Discussed: No, Status at Discharge Functional status at discharge: independent ambulation Overall status at discharge: patient is back to baseline Mental Status: mental status grossly normal Speech and Movement: speech and movement normal Mood: congruent mood Affect: normal affect Exam Physical Exam Vital signs: Pulse Resp BP 101 H 20 112/72 04/20/23 19:36 04/20/23 19:36 04/20/23 19:36 PFSH All Active Problems (Updated 04/20/23 @ 21:07 by Michael Coleman) Strain of rectus abdominis muscle (Acute) (Acute) surrogacy - IVF Breech presentation (Acute) ECV 04/23/23 GDM, class A1 (Acute) On high doses of insulin Medical History (Updated 04/20/23 @ 21:07 by Michael Coleman) ADHD Female hirsutism Patient referred to [facility] 05/15/2020. Migraine Polycystic ovarian syndrome Psoriasis Face, back, neck. Rx with [facility] w/o improvement. Right rotator cuff tendinitis Injected: 04/14/2019 Subacromial impingement of right shoulder Surgical History (Updated 04/18/23 @ 16:35 by Giana Cuellar MD) History of tubal ligation 05/10/2020. Laparoscopic bilateral salpingectomy. Social History (Updated 04/16/23 @ 15:19 by Latrice Niño) Smoking/Tobacco Use Status: Former Tobacco Use Smoking risk assessment performed?: Yes Alcohol Intake: never Drug use: Never Substance use type: does not use Household members: significant other, children and other Details: Kasey Carrillo D-Evelyn Number of Children: 2 current occupation: [employer] Do you feel safe at home: Yes Do you feel safe in your relationship?: Yes History History 3 Para Hx # Term Pregnancies 2 Multiple births Hx # Pregnancies Ectopic pregnancies AB induced Hx Number of Living Children 2 AB spontaneous Past Pregnancies Del. Date GA/Weeks # Preg Succ Route Wgt Sex Labor Lgth Anesthesia Location Prov Complic 03/19/18 40 No Yes vaginal 3373.593 g Male 9hrs [facility] [place] 03/29/20 37 No Yes vaginal 4053.982 g Female 9hrs [facility] [place] Delivery Date: 03/19/18 Last Updated by: Giana Cuellar MD Induction due to NRFHT Delivery Date: 03/29/20 Last Updated by: Giana Cuellar MD PROM DS: Data Vitals/I&O Vitals and I&O: Vital Signs Pulse 101 H 04/20/23 19:36 Respiratory Rate 04/20/23 19:36 Blood Pressure 112/72 04/20/23 19:36 Blood Pressure 112/74 04/20/23 19:25 Pain Level 7 04/20/23 19:49
== END 2023-04-20 21:18 | disposition home or self-care (01) ==
LOC: BCD 18:21 → OBS 19:17
PROVIDERS: PCP Family Medicine; Visit Provider Family Medicine
DX: S39.011A Strain of muscle, fascia and tendon of abdomen, initial encounter (principal); X58.XXXA Exposure to other specified factors, initial encounter

== ENCOUNTER 2023-04-23 07:47 | Outpatient (CLI) | payer BC, MEDICAID, SELFPAY ==
--- NOTE | 2023-04-23 07:58 | NUR.NOTE ---
Pt arrived for scheduled ECV, RN noted EDC of 05/20/2023. Policy states ECV should not be attempted prior to 37 weeks of gestation. RN spoke with Dr. Martinez. stated she will look into RN's concerns of pt's gestational age of 36 +10/05. Nursing Note:
[2023-04-23 08:25] VITALS: PULSE 78; RESP 18; TEMP 36.6; O2SAT 97
--- NOTE | 2023-04-23 09:26 | PDOC.NST_ITS ---
Date of service: 04/23/23 Time of Service: 09:27 NST Evaluation Reason for NST Reasons for Nonstress Test: EXTERNAL CEPHALIC VERSION Gestational Age Gestational Age in Weeks and Days: 36 Weeks and 1Days Test and Monitor Explained Test/Monitor Explained: Test Explained, Monitor Explained and Patient Verbalized Understanding Urine Results Urine Protein: Negative Urine Ketones: Negative Urine Glucose: Negative Urine Blood: Negative NST Information Date on Monitor: 04/23/23 Time on Monitor: 07:37 Date off Monitor: 04/23/23 Time off Monitor: 08:02 Total Time on Monitor: 25 NST Interventions: Notify Provider Contraction Frequency: 0 NST Evaluation Patient States Movement: Present FHR Baseline: 140 Variability: Moderate 6-25 bpm Accelerations: 15x15 Decelerations: None NST Results: Reactive Note Ultrasound Done: Presentation (fetus cephalic, spine to maternal R. subjectively nl fluid. fetus active.) Coding for Presentation w/NST: Completed Exam. NST Note Note: Pt presented for ECV after persistent breech presentation. Reactive NST. Bedside u/s confirmed vertex presentation. SVE: Cervix closed, midposition, soft. Fetus -3 presentation. Pt will f/u with [facility] for care. She has a level 2 u/s at [facility] later today. NST Reviewed and Verified by: Nory Martinez
== END 2023-04-23 08:25 | disposition home or self-care (01) | DRG 833 ==
LOC: BCD 05-09 11:27 → OBS 05-09 11:35
PROVIDERS: PCP Family Medicine; Visit Provider Obstetrics & Gynecology
DX: O32.1XX0 Maternal care for breech presentation, not applicable or unspecified (principal); Z3A.36 36 weeks gestation of pregnancy; Z53.09 Procedure and treatment not carried out because of other contraindication
CPT/HCPCS: 85027; 86900; 86901; 59025

== ENCOUNTER 2023-05-02 13:43 | Outpatient (CLI) | payer BC, MEDICAID, SELFPAY ==
[2023-05-02 15:40] LABS: ROM Plus Negative
== END 2023-05-02 16:04 | disposition home or self-care (01) ==
LOC: BCD 13:45 → OBS 15:36
PROVIDERS: PCP Family Medicine; Visit Provider Family Medicine
DX: O47.1 False labor at or after 37 completed weeks of gestation (principal); Z3A.37 37 weeks gestation of pregnancy
CPT/HCPCS: 84112; G0378

== ENCOUNTER 2023-05-09 14:09 | Inpatient (IN) | payer BC, MEDICAID, SELFPAY ==
[2023-05-09] VITALS (123 sets, daily range): BP systolic 121–136; BP diastolic 71–86; PULSE 0–121; RESP 18; TEMP 37–37.1; O2SAT 97
--- NOTE | 2023-05-09 14:54 | W.PM.OBHPL1 ---
Date of service: 05/09/23 Time of Service: 14:54 Assessment and Plan Assessment and plan (1) : Status: Acute Assessment and plan: at38.3w w Rh+ GBS+ RI HepB- who is GDM A1 on 65u lantus requiring minimal mealtime novolog. Sugars have been well controlled on this regimen. She is a gestational surrogate. In the last week, BP has been higher in the 130/90 range, one reading 150/100, and headache in the last day, responds to tylenol. Recent preeclampsia labs normal. No proteinuria. Due to elevated BP, she is brought in for induction. She is herb mildly on admission. SVE 1.5/60/-2. Plan will be to start pitocin, start penicillin for GBS prophylaxis. Parents are on their way now. She has a CGM on to monitor glucose. Closely monitor BP. Anticipate . (2) GDM, class A1: Status: Acute Assessment and plan: see above (3) Hypertension affecting in third trimester: Status: Acute Assessment and plan: see above (4) in person acting as gestational surrogate: Status: Acute Assessment and plan: see above OB-HPI Labor/Delivery History of Present Illness Reason for Visit: Elevated BP Chief Complaint: Scheduled Induction of Labor Indication for Induction: Gestational Hypertension; Signs/Symptoms Gestational HTN , Associated Signs and Symptoms of GestationalHTN: headache, elevated BP. NELLIE Calculator Estimated Delivery Date Method Current Current Estimate 05/20/23 Ultrasound #1 38w 3d History of Present Expected Delivery Route/Plan - [facility] Specific Issues/Plan 1. IVF surrogacy. (pt had prior salpingectomy) 2. GDM: insulin 3. Breech presentation - ECV scheduled 04/23/23 Assessment: History Reviewed & Current Narrative: Lisa is a 32yo at 38.3w with RH+ GBS+ GDM on Lantus, now well controlled. She is a gestational surrogate. She had a signficant headache last night, and BP is elevated from previous. IOL for gestational hypertension. Membranes were stripped this morning and she is feeling mild contractions now. Informed Consent Informed Consent: Induction of Labor and Risk,Benefits,Alternatives Discussed Review of Systems All systems reviewed & are unremarkable except as noted in HPI and below PFSH All Active Problems in person acting as gestational surrogate (Acute) Hypertension affecting in third trimester (Acute) Strain of rectus abdominis muscle (Acute) (Acute) surrogacy - IVF Breech presentation (Acute) ECV 04/23/23 GDM, class A1 (Acute) On high doses of insulin Medical History ADHD Female hirsutism Patient referred to [facility] 05/15/2020. Migraine Polycystic ovarian syndrome Psoriasis Face, back, neck. Rx with [facility] w/o improvement. Right rotator cuff tendinitis Injected: 04/14/2019 Subacromial impingement of right shoulder Surgical History History of tubal ligation 05/10/2020. Laparoscopic bilateral salpingectomy. Social History Smoking/Tobacco Use Status: Former Tobacco Use Smoking risk assessment performed?: Yes Alcohol Intake: never Drug use: Never Substance use type: does not use Household members: significant other, children and other Details: Kasey Carrillo D-Evelyn Housing: house Number of Children: 2 current occupation: [employer] Do you feel safe at home: Yes Do you feel safe in your relationship?: Yes History History 3 Para Hx # Term Pregnancies 2 Multiple births Hx # Pregnancies Ectopic pregnancies AB induced Hx Number of Living Children 2 AB spontaneous Past Pregnancies Del. Date GA/Weeks # Preg Succ Route Wgt Sex Labor Lgth Anesthesia Location Prov Complic 03/19/18 40 No Yes vaginal 3373.593 g Male 9hrs [facility] 03/29/20 37 No Yes vaginal 4053.982 g Female 9hrs [facility] [place] Delivery Date: 03/19/18 Last Updated by: Giana Cuellar MD Induction due to NRFHT Delivery Date: 03/29/20 Last Updated by: Giana Cuellar MD PROM Meds Allergies and Home Medications Allergies Allergy/AdvReac Type Severity Reaction Status Date / Time spironolactone AdvReac Intermediate Diarrhea Verified 04/16/23 15:14 metformin AdvReac Diarrhea Verified 04/16/23 15:14 Home Medications Medication Instructions Recorded Confirmed Type vitamins-iron fumarate 27 1 tab PO DAILY 03/28/20 04/16/23 History mg iron-folic acid 0.8 mg tablet ( Vitamin) insulin glargine 100 unit/mL (3 60 unit subcut QPM 04/16/23 04/16/23 History mL) subcutaneous pen (Lantus Solostar U-100 Insulin) insulin lispro 100 unit/mL 1 sliding scale dose subcut 04/16/23 04/16/23 History subcutaneous pen (Humalog KwikPen USEASDIRECTD (U-100) Insulin) Exam Physical Exam Vital Signs Reviewed: Yes Constitutional Constitutional: no acute distress Detailed Labor and Delivery Exam Dilation: 1.5 Effacement (%): 60 station: -2 Cervix position: mid Consistency: medium León Score: Cervical Points Exam 0 1 2 3 Dilation Closed 1-2cm 3-4 cm 5-6cm Effacement 0-30% 40-50% 60-70% 80% Consistency Firm Medium Soft Station -3 -2 -1,0 +1,+2 Position Posterior Mid Anterior LEÓN Score(Cervical Ripeness Score): 6 Amniotic Membrane Status: Intact Monitor Mode: External Contraction Frequency(min): irregular Contraction Intensity: Mild HEENT Exam HEENT Exam: Normal Neck Exam Neck Exam: Normal Respiratory Exam Respiratory Exam: Normal Cardiovascular Exam Cardiovascular Exam: Normal Abdominal Exam Abdominal Exam: Normal Exam Exam: Normal Extremities Exam Extremities Exam: Normal Back/Spine/Pelvis Exam Back Exam: Normal Pelvis Adequate: Yes Skin Exam Skin Exam: Normal Neurological Exam Neurological Exam: Normal Psychiatric Exam Psychiatric Exam: Normal Results Results Group Beta Strep: Positive Blood Type: O+ Rubella Status: Immune Varicella Immunity: Not Tested Risk Assessment Risks Reviewed Risks Reviewed Upon Admission: Yes
[2023-05-09 15:15] LABS: HGB 13.3 g/dL (11.2-15.7); MCH 31.7 pg (27.0-33.0); MCV 91 fL (80-95); Platelet Count 200 10^3/uL (130-400); RDW 12.6 % (11.7-14.6); WBC 10.27 10^3/uL (4.4-10.8)
[2023-05-09 15:29] LABS: ALT 17 U/L (14-59); AST 15 U/L (15-37); Albumin 2.6 g/dL (3.4-5.0); Alkaline Phosphatase 133 U/L (46-116); Anion Gap 11.5 mmol/L (3-11); BUN 10 mg/dL (7-18); Bilirubin, Total 0.2 mg/dL (0.2-1.0); CO2 21.5 mmol/L (21.0-32.0); CREATININE 0.6 mg/dL (0.55-1.02); Calcium 8.2 mg/dL (8.5-10.1); Chloride 105 mmol/L (98-107); Estimated GFR 122.23 (mL/min/1.73m2); Glucose 102 mg/dL (74-106); Potassium 3.8 mmol/L (3.5-5.1); Sodium 138 mmol/L (136-145); Total Protein 6.5 g/dL (6.4-8.2); Uric Acid 4.8 mg/dL (2.6-6.0)
[2023-05-09] MEDS: Lactated Ringers 1,000 ML 125 ML IV (17:40)
[2023-05-09] MEDS: Oxytocin/Normal Saline 30 UNIT/500 ML BAG 2 UNITS IV (17:41)
[2023-05-09] MEDS: Normal Saline Flush 10 ML SYR IVP (17:41)
--- NOTE | 2023-05-09 18:19 | W.PM.OBNL1 ---
Date of service: 05/09/23 Time of Service: 18:19 Informed Consent Informed Consent: Induction of Labor and Risk,Benefits,Alternatives Discussed Pelvic Exam Dilation: 2 Effacement (%): 60 station: -2 Cervix Position: mid Consistency: medium Vaginal Exam Presentation: Cephalic Contractions Monitor Mode: External Intensity: Mild/Moderate Fetus A Monitor: External (US) Heart Rate Baseline: 150 Presentation: Cephalic Variability: Moderate (6-25 BPM) Categories: Category II FHR Rhythm: Regular Characteristics: Normal Decelerations: Prolonged (single 8minute decel to 55bpm) Recurrence: Episodic Amniotic Membrane Status: Intact Assessment Note: Overall category 1 with single severe prolonged decel, category 2. Assessment and Plan Assessment and plan (1) : Status: Acute Assessment and plan: Pitocin was initiated, and inadvertently not in the pump. It was running wide open for approximately 5 minutes. This caused Lisa to immediately have a very strong contraction lasting over a minute. this triggered an 8 minute decel to 55bpm that did not respond to position changes. Pitocin was immediately stopped, which is when the error was recognized. Fluid bolos initiated. BP was stable during this time as was maternal glucose. Monitoring was a bit difficult. Considered an internal monitor but she is intact, not safe for AROM. FHR slowly recovered and contraction intensity calmed as well. Baby is now normal rate, moderate variability, no further decels. Will continue to monitor closely. (2) GDM, class A1: Status: Acute (3) Hypertension affecting in third trimester: Status: Acute (4) in person acting as gestational surrogate: Status: Acute Objective Abnormal lab results 05/09/23 Range/Units 15:05 Anion Gap 11.5 H (3-11) mmol/L Calcium 8.2 L (8.5-10.1) mg/dL Alkaline Phosphatase 133 H (46-116) U/L Albumin 2.6 L (3.4-5.0) g/dL Temp Pulse Resp BP Pulse Ox 37.1 C 0 L 18 136/86 97 05/09/23 14:56 05/09/23 18:18 05/09/23 14:56 05/09/23 14:56 05/09/23 15:19 Laboratory Results WBC 10.27 10^3/uL (4.4-10.8) 05/09/23 15:05 RBC 4.20 10^6/uL (3.93-5.22) 05/09/23 15:05 Hgb 13.3 g/dL (11.2-15.7) 05/09/23 15:05 Hct 38.0 % (36.0-46.0) 05/09/23 15:05 MCV 91 fL (80-95) 05/09/23 15:05 MCH 31.7 pg (27.0-33.0) 05/09/23 15:05 MCHC 35.0 % (32.0-36.0) 05/09/23 15:05 RDW 12.6 % (11.7-14.6) 05/09/23 15:05 Plt Count 200 10^3/uL (130-400) 05/09/23 15:05 MPV 11.0 fL (8.0-11.0) 05/09/23 15:05 Sodium 138 mmol/L (136-145) 05/09/23 15:05 Potassium 3.8 mmol/L (3.5-5.1) 05/09/23 15:05 Chloride 105 mmol/L (98-107) 05/09/23 15:05 Carbon Dioxide 21.5 mmol/L (21.0-32.0) 05/09/23 15:05 Anion Gap 11.5 mmol/L (3-11) H 05/09/23 15:05 BUN 10 mg/dL (7-18) 05/09/23 15:05 Creatinine 0.6 mg/dL (0.55-1.02) 05/09/23 15:05 Est GFR (CKD-EPI 2020) 122.23 (mL/min/1.73m2) 05/09/23 15:05 Glucose 102 mg/dL (74-106) 05/09/23 15:05 Uric Acid 4.8 mg/dL (2.6-6.0) 05/09/23 15:05 Calcium 8.2 mg/dL (8.5-10.1) L 05/09/23 15:05 Total Bilirubin 0.2 mg/dL (0.2-1.0) 05/09/23 15:05 AST 15 U/L (15-37) 05/09/23 15:05 ALT 17 U/L (14-59) 05/09/23 15:05 Alkaline Phosphatase 133 U/L (46-116) H 05/09/23 15:05 Total Protein 6.5 g/dL (6.4-8.2) 05/09/23 15:05 Albumin 2.6 g/dL (3.4-5.0) L 05/09/23 15:05 Patient ABO/Rh O Positive 05/09/23 15:05 Antibody Screen NEGATIVE 05/09/23 15:05 Vital Signs Reviewed: Yes Subjective Patient Reports: New Complaints Interval history since last seen: contractions are increasing in frequency and intensity Results Hemoglobin/Hematocrit: Hgb 13.3 g/dL (11.2-15.7) 05/09/23 15:05 Hct 38.0 % (36.0-46.0) 05/09/23 15:05 Abnormal Lab Findings: Abnormal Labs 05/09/23 15:05 Anion Gap 11.5 H Calcium 8.2 L Alkaline Phosphatase 133 H Albumin 2.6 L
[2023-05-09] MEDS: Penicillin G POT. 5,000,000 UNITS in Normal Saline 100 ML 200 UNITS IVPB (18:50)
--- NOTE | 2023-05-09 19:55 | W.PM.OBNL1 ---
Date of service: 05/09/23 Time of Service: 19:55 Informed Consent Informed Consent: Induction of Labor and Risk,Benefits,Alternatives Discussed Objective Abnormal lab results 05/09/23 Range/Units 15:05 Anion Gap 11.5 H (3-11) mmol/L Calcium 8.2 L (8.5-10.1) mg/dL Alkaline Phosphatase 133 H (46-116) U/L Albumin 2.6 L (3.4-5.0) g/dL Temp Pulse Resp BP Pulse Ox 37.1 C 112 H 18 136/86 97 05/09/23 14:56 05/09/23 19:54 05/09/23 14:56 05/09/23 14:56 05/09/23 15:19 Laboratory Results WBC 10.27 10^3/uL (4.4-10.8) 05/09/23 15:05 RBC 4.20 10^6/uL (3.93-5.22) 05/09/23 15:05 Hgb 13.3 g/dL (11.2-15.7) 05/09/23 15:05 Hct 38.0 % (36.0-46.0) 05/09/23 15:05 MCV 91 fL (80-95) 05/09/23 15:05 MCH 31.7 pg (27.0-33.0) 05/09/23 15:05 MCHC 35.0 % (32.0-36.0) 05/09/23 15:05 RDW 12.6 % (11.7-14.6) 05/09/23 15:05 Plt Count 200 10^3/uL (130-400) 05/09/23 15:05 MPV 11.0 fL (8.0-11.0) 05/09/23 15:05 Sodium 138 mmol/L (136-145) 05/09/23 15:05 Potassium 3.8 mmol/L (3.5-5.1) 05/09/23 15:05 Chloride 105 mmol/L (98-107) 05/09/23 15:05 Carbon Dioxide 21.5 mmol/L (21.0-32.0) 05/09/23 15:05 Anion Gap 11.5 mmol/L (3-11) H 05/09/23 15:05 BUN 10 mg/dL (7-18) 05/09/23 15:05 Creatinine 0.6 mg/dL (0.55-1.02) 05/09/23 15:05 Est GFR (CKD-EPI 2020) 122.23 (mL/min/1.73m2) 05/09/23 15:05 Glucose 102 mg/dL (74-106) 05/09/23 15:05 Uric Acid 4.8 mg/dL (2.6-6.0) 05/09/23 15:05 Calcium 8.2 mg/dL (8.5-10.1) L 05/09/23 15:05 Total Bilirubin 0.2 mg/dL (0.2-1.0) 05/09/23 15:05 AST 15 U/L (15-37) 05/09/23 15:05 ALT 17 U/L (14-59) 05/09/23 15:05 Alkaline Phosphatase 133 U/L (46-116) H 05/09/23 15:05 Total Protein 6.5 g/dL (6.4-8.2) 05/09/23 15:05 Albumin 2.6 g/dL (3.4-5.0) L 05/09/23 15:05 Patient ABO/Rh O Positive 05/09/23 15:05 Antibody Screen NEGATIVE 05/09/23 15:05 Subjective Interval history since last seen: Issac Gonzalez up walking - rates ctx as 10. 40-50 mmhg q 3-6 FHT - baseline 120, mod variability, no decela, Cat 1 O: abd/ut palpates mild/mod firm during ctx. A: Maternal and wellbeing GBS pos - load dose abx infused Colostrum collection assist with breat pump BP good - no evidence/concerns for PIH GDM - sugars good this afternoon/sky - will give 1/2 usual dose Lantus this sky P: expect Logistics of post delivery care/parenting discussed - Lisa expecteing Infant to be solely with parents and roomed in different room. [facility] [place] Results Hemoglobin/Hematocrit: Hgb 13.3 g/dL (11.2-15.7) 05/09/23 15:05 Hct 38.0 % (36.0-46.0) 05/09/23 15:05 Abnormal Lab Findings: Abnormal Labs 05/09/23 15:05 Anion Gap 11.5 H Calcium 8.2 L Alkaline Phosphatase 133 H Albumin 2.6 L
[2023-05-09] MEDS: Insulin Glargine 300 UNITS/3 ML PEN 30 UNITS SC (20:08)
--- NOTE | 2023-05-09 22:28 | W.PM.OBNL1 ---
Date of service: 05/09/23 Time of Service: 22:28 Informed Consent Informed Consent: Induction of Labor and Risk,Benefits,Alternatives Discussed Objective Abnormal lab results 05/09/23 Range/Units 15:05 Anion Gap 11.5 H (3-11) mmol/L Calcium 8.2 L (8.5-10.1) mg/dL Alkaline Phosphatase 133 H (46-116) U/L Albumin 2.6 L (3.4-5.0) g/dL Temp Pulse Resp BP Pulse Ox 37.1 C 70 18 132/86 97 05/09/23 14:56 05/09/23 22:26 05/09/23 20:00 05/09/23 20:00 05/09/23 15:19 Laboratory Results WBC 10.27 10^3/uL (4.4-10.8) 05/09/23 15:05 RBC 4.20 10^6/uL (3.93-5.22) 05/09/23 15:05 Hgb 13.3 g/dL (11.2-15.7) 05/09/23 15:05 Hct 38.0 % (36.0-46.0) 05/09/23 15:05 MCV 91 fL (80-95) 05/09/23 15:05 MCH 31.7 pg (27.0-33.0) 05/09/23 15:05 MCHC 35.0 % (32.0-36.0) 05/09/23 15:05 RDW 12.6 % (11.7-14.6) 05/09/23 15:05 Plt Count 200 10^3/uL (130-400) 05/09/23 15:05 MPV 11.0 fL (8.0-11.0) 05/09/23 15:05 Sodium 138 mmol/L (136-145) 05/09/23 15:05 Potassium 3.8 mmol/L (3.5-5.1) 05/09/23 15:05 Chloride 105 mmol/L (98-107) 05/09/23 15:05 Carbon Dioxide 21.5 mmol/L (21.0-32.0) 05/09/23 15:05 Anion Gap 11.5 mmol/L (3-11) H 05/09/23 15:05 BUN 10 mg/dL (7-18) 05/09/23 15:05 Creatinine 0.6 mg/dL (0.55-1.02) 05/09/23 15:05 Est GFR (CKD-EPI 2020) 122.23 (mL/min/1.73m2) 05/09/23 15:05 Glucose 102 mg/dL (74-106) 05/09/23 15:05 Uric Acid 4.8 mg/dL (2.6-6.0) 05/09/23 15:05 Calcium 8.2 mg/dL (8.5-10.1) L 05/09/23 15:05 Total Bilirubin 0.2 mg/dL (0.2-1.0) 05/09/23 15:05 AST 15 U/L (15-37) 05/09/23 15:05 ALT 17 U/L (14-59) 05/09/23 15:05 Alkaline Phosphatase 133 U/L (46-116) H 05/09/23 15:05 Total Protein 6.5 g/dL (6.4-8.2) 05/09/23 15:05 Albumin 2.6 g/dL (3.4-5.0) L 05/09/23 15:05 Patient ABO/Rh O Positive 05/09/23 15:05 Antibody Screen NEGATIVE 05/09/23 15:05 Subjective Interval history since last seen: Doing well with steady mild ctx now for >4 hrs since transient hyperstim event pitocin off. good FMVT, no ROM Cat 1 NST, good BP's Up walking some, no KLEIN, good UO, good PO fluid intake. CVX: 2 cm int os, soft, ant, 50%, -2 station - no change vs admit exam earlier this sky A: and Maternal wellbeing. No cervical change with several hours mild ctx - c/w early vs prodromal labor. Same indications for labor induction exist: elevated BP/KLEIN earlier 05/09, GDM good control. Shared decision making re pros and cons augmenting ctx by restarting pitocin. Maxime Gonzalez, Thierno all part of conversation and risk review - hyperstim, FHT decels, uterine tearing. She/They wished to proceed with expectation that if ctx significantly increase in intensity/freq we may be able to dial back the pit and allow her to labor without. P: Restart pitocin Expect GDM - good sugars - cont monitoring GBS pos - cont prophy PCN. [facility] [place] Results Hemoglobin/Hematocrit: Hgb 13.3 g/dL (11.2-15.7) 05/09/23 15:05 Hct 38.0 % (36.0-46.0) 05/09/23 15:05 Abnormal Lab Findings: Abnormal Labs 05/09/23 15:05 Anion Gap 11.5 H Calcium 8.2 L Alkaline Phosphatase 133 H Albumin 2.6 L
[2023-05-09 22:37] LABS: COMMENT (LAB VIEW ONLY) 115.47 mg/dL; PROTEIN 24.4 mg/dL; Prot/Crea Ur Ratio 0.21
[2023-05-09] MEDS: Penicillin G POT. 3,000,000 UNITS in Normal Saline 50 ML 100 UNITS IVPB (22:38)
[2023-05-10] VITALS (179 sets, daily range): BP systolic 117–144; BP diastolic 61–72; PULSE 0–120; RESP 17–18; TEMP 36.8
[2023-05-10] MEDS: Lactated Ringers 1,000 ML 125 ML IV ×2 (01:12→09:16)
--- NOTE | 2023-05-10 02:33 | W.PM.OBNL1 ---
Date of service: 05/10/23 Time of Service: 02:33 Informed Consent Informed Consent: Induction of Labor and Risk,Benefits,Alternatives Discussed Objective Abnormal lab results 05/09/23 Range/Units 15:05 Anion Gap 11.5 H (3-11) mmol/L Calcium 8.2 L (8.5-10.1) mg/dL Alkaline Phosphatase 133 H (46-116) U/L Albumin 2.6 L (3.4-5.0) g/dL Temp Pulse Resp BP Pulse Ox 37.0 C 107 H 17 130/65 97 05/09/23 22:43 05/10/23 02:31 05/10/23 00:01 05/10/23 02:21 05/09/23 15:19 Laboratory Results WBC 10.27 10^3/uL (4.4-10.8) 05/09/23 15:05 RBC 4.20 10^6/uL (3.93-5.22) 05/09/23 15:05 Hgb 13.3 g/dL (11.2-15.7) 05/09/23 15:05 Hct 38.0 % (36.0-46.0) 05/09/23 15:05 MCV 91 fL (80-95) 05/09/23 15:05 MCH 31.7 pg (27.0-33.0) 05/09/23 15:05 MCHC 35.0 % (32.0-36.0) 05/09/23 15:05 RDW 12.6 % (11.7-14.6) 05/09/23 15:05 Plt Count 200 10^3/uL (130-400) 05/09/23 15:05 MPV 11.0 fL (8.0-11.0) 05/09/23 15:05 Sodium 138 mmol/L (136-145) 05/09/23 15:05 Potassium 3.8 mmol/L (3.5-5.1) 05/09/23 15:05 Chloride 105 mmol/L (98-107) 05/09/23 15:05 Carbon Dioxide 21.5 mmol/L (21.0-32.0) 05/09/23 15:05 Anion Gap 11.5 mmol/L (3-11) H 05/09/23 15:05 BUN 10 mg/dL (7-18) 05/09/23 15:05 Creatinine 0.6 mg/dL (0.55-1.02) 05/09/23 15:05 Est GFR (CKD-EPI 2020) 122.23 (mL/min/1.73m2) 05/09/23 15:05 Glucose 102 mg/dL (74-106) 05/09/23 15:05 Uric Acid 4.8 mg/dL (2.6-6.0) 05/09/23 15:05 Calcium 8.2 mg/dL (8.5-10.1) L 05/09/23 15:05 Total Bilirubin 0.2 mg/dL (0.2-1.0) 05/09/23 15:05 AST 15 U/L (15-37) 05/09/23 15:05 ALT 17 U/L (14-59) 05/09/23 15:05 Alkaline Phosphatase 133 U/L (46-116) H 05/09/23 15:05 Total Protein 6.5 g/dL (6.4-8.2) 05/09/23 15:05 Albumin 2.6 g/dL (3.4-5.0) L 05/09/23 15:05 Ur Random Creatinine 115.47 mg/dL 05/09/23 20:00 U Random Total Protein 24.4 mg/dL 05/09/23 20:00 U [place] Prot/Creat Ratio 0.21 05/09/23 20:00 Patient ABO/Rh O Positive 05/09/23 15:05 Antibody Screen NEGATIVE 05/09/23 15:05 Subjective Interval history since last seen: Gradual inc pit dose to now 9 units. CTX pattern more consistently spaced ~Q3 min. Still palpating mild/mod - she notes abd firmness and some pelvic pressure with ctx. Good FVMT, no ROM, no KLEIN, no pedal edema, taking ice/fluids PO - good UO. O: Cvx - deferred 120's/80 BP. 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 A: Maternal and wellbeing Clinically not in active labor, yet. GDM - FS 80-100 - cont PO PRN GBS - approp prophy given IV q 4 hrs P: Cont to gently bump up PIT and expect . Maxime and Thierno plan rest/snooze while they can. [place]. [place] Results Hemoglobin/Hematocrit: Hgb 13.3 g/dL (11.2-15.7) 05/09/23 15:05 Hct 38.0 % (36.0-46.0) 05/09/23 15:05 Abnormal Lab Findings: Abnormal Labs 05/09/23 15:05 Anion Gap 11.5 H Calcium 8.2 L Alkaline Phosphatase 133 H Albumin 2.6 L
[2023-05-10] MEDS: Penicillin G POT. 3,000,000 UNITS in Normal Saline 50 ML 100 UNITS IVPB ×2 (03:00→07:00)
--- NOTE | 2023-05-10 06:39 | W.PM.OBNL1 ---
Date of service: 05/10/23 Time of Service: 06:39 Informed Consent Informed Consent: Induction of Labor and Risk,Benefits,Alternatives Discussed Objective Abnormal lab results 05/09/23 Range/Units 15:05 Anion Gap 11.5 H (3-11) mmol/L Calcium 8.2 L (8.5-10.1) mg/dL Alkaline Phosphatase 133 H (46-116) U/L Albumin 2.6 L (3.4-5.0) g/dL Temp Pulse Resp BP Pulse Ox 37.0 C 110 H 17 122/71 97 05/09/23 22:43 05/10/23 06:38 05/10/23 00:01 05/10/23 05:12 05/09/23 15:19 Laboratory Results WBC 10.27 10^3/uL (4.4-10.8) 05/09/23 15:05 RBC 4.20 10^6/uL (3.93-5.22) 05/09/23 15:05 Hgb 13.3 g/dL (11.2-15.7) 05/09/23 15:05 Hct 38.0 % (36.0-46.0) 05/09/23 15:05 MCV 91 fL (80-95) 05/09/23 15:05 MCH 31.7 pg (27.0-33.0) 05/09/23 15:05 MCHC 35.0 % (32.0-36.0) 05/09/23 15:05 RDW 12.6 % (11.7-14.6) 05/09/23 15:05 Plt Count 200 10^3/uL (130-400) 05/09/23 15:05 MPV 11.0 fL (8.0-11.0) 05/09/23 15:05 Sodium 138 mmol/L (136-145) 05/09/23 15:05 Potassium 3.8 mmol/L (3.5-5.1) 05/09/23 15:05 Chloride 105 mmol/L (98-107) 05/09/23 15:05 Carbon Dioxide 21.5 mmol/L (21.0-32.0) 05/09/23 15:05 Anion Gap 11.5 mmol/L (3-11) H 05/09/23 15:05 BUN 10 mg/dL (7-18) 05/09/23 15:05 Creatinine 0.6 mg/dL (0.55-1.02) 05/09/23 15:05 Est GFR (CKD-EPI 2020) 122.23 (mL/min/1.73m2) 05/09/23 15:05 Glucose 102 mg/dL (74-106) 05/09/23 15:05 Uric Acid 4.8 mg/dL (2.6-6.0) 05/09/23 15:05 Calcium 8.2 mg/dL (8.5-10.1) L 05/09/23 15:05 Total Bilirubin 0.2 mg/dL (0.2-1.0) 05/09/23 15:05 AST 15 U/L (15-37) 05/09/23 15:05 ALT 17 U/L (14-59) 05/09/23 15:05 Alkaline Phosphatase 133 U/L (46-116) H 05/09/23 15:05 Total Protein 6.5 g/dL (6.4-8.2) 05/09/23 15:05 Albumin 2.6 g/dL (3.4-5.0) L 05/09/23 15:05 Ur Random Creatinine 115.47 mg/dL 05/09/23 20:00 U Random Total Protein 24.4 mg/dL 05/09/23 20:00 U [place] Prot/Creat Ratio 0.21 05/09/23 20:00 Patient ABO/Rh O Positive 05/09/23 15:05 Antibody Screen NEGATIVE 05/09/23 15:05 Subjective Interval history since last seen: Since last check, walked, showered, now in tub - still mild/mod ctx. PO intake goos, some mucousy bloody show, good FMVT, good UO O: CVX - soft, ant, 3 cm, 40%, -1 station, intact 120's/70's comfortable, in tub with care to keep monitor out of water A: Still not in active labor, though some cervical change in past 3-4 hours Will cont pit - ctx interval Q2-3 - mild/mod by palpation P: Expect - cont pit, position changes GBS - cont prophy abx GDM - sugars good [place]. [place] Results Hemoglobin/Hematocrit: Hgb 13.3 g/dL (11.2-15.7) 05/09/23 15:05 Hct 38.0 % (36.0-46.0) 05/09/23 15:05 Abnormal Lab Findings: Abnormal Labs 05/09/23 15:05 Anion Gap 11.5 H Calcium 8.2 L Alkaline Phosphatase 133 H Albumin 2.6 L
--- NOTE | 2023-05-10 10:23 | W.PM.OBNL1 ---
Date of service: 05/10/23 Time of Service: 10:24 Informed Consent Informed Consent: Induction of Labor and Risk,Benefits,Alternatives Discussed Objective Abnormal lab results 05/09/23 Range/Units 15:05 Anion Gap 11.5 H (3-11) mmol/L Calcium 8.2 L (8.5-10.1) mg/dL Alkaline Phosphatase 133 H (46-116) U/L Albumin 2.6 L (3.4-5.0) g/dL Temp Pulse Resp BP Pulse Ox 36.8 C 99 H 18 125/71 97 05/10/23 10:02 05/10/23 10:22 05/10/23 10:02 05/10/23 10:02 05/09/23 15:19 Laboratory Results WBC 10.27 10^3/uL (4.4-10.8) 05/09/23 15:05 RBC 4.20 10^6/uL (3.93-5.22) 05/09/23 15:05 Hgb 13.3 g/dL (11.2-15.7) 05/09/23 15:05 Hct 38.0 % (36.0-46.0) 05/09/23 15:05 MCV 91 fL (80-95) 05/09/23 15:05 MCH 31.7 pg (27.0-33.0) 05/09/23 15:05 MCHC 35.0 % (32.0-36.0) 05/09/23 15:05 RDW 12.6 % (11.7-14.6) 05/09/23 15:05 Plt Count 200 10^3/uL (130-400) 05/09/23 15:05 MPV 11.0 fL (8.0-11.0) 05/09/23 15:05 Sodium 138 mmol/L (136-145) 05/09/23 15:05 Potassium 3.8 mmol/L (3.5-5.1) 05/09/23 15:05 Chloride 105 mmol/L (98-107) 05/09/23 15:05 Carbon Dioxide 21.5 mmol/L (21.0-32.0) 05/09/23 15:05 Anion Gap 11.5 mmol/L (3-11) H 05/09/23 15:05 BUN 10 mg/dL (7-18) 05/09/23 15:05 Creatinine 0.6 mg/dL (0.55-1.02) 05/09/23 15:05 Est GFR (CKD-EPI 2020) 122.23 (mL/min/1.73m2) 05/09/23 15:05 Glucose 102 mg/dL (74-106) 05/09/23 15:05 Uric Acid 4.8 mg/dL (2.6-6.0) 05/09/23 15:05 Calcium 8.2 mg/dL (8.5-10.1) L 05/09/23 15:05 Total Bilirubin 0.2 mg/dL (0.2-1.0) 05/09/23 15:05 AST 15 U/L (15-37) 05/09/23 15:05 ALT 17 U/L (14-59) 05/09/23 15:05 Alkaline Phosphatase 133 U/L (46-116) H 05/09/23 15:05 Total Protein 6.5 g/dL (6.4-8.2) 05/09/23 15:05 Albumin 2.6 g/dL (3.4-5.0) L 05/09/23 15:05 Ur Random Creatinine 115.47 mg/dL 05/09/23 20:00 U Random Total Protein 24.4 mg/dL 05/09/23 20:00 U [place] Prot/Creat Ratio 0.21 05/09/23 20:00 Patient ABO/Rh O Positive 05/09/23 15:05 Antibody Screen NEGATIVE 05/09/23 15:05 Subjective Interval history since last seen: Slept soundly for past 2+ hours while on pit @ ~20 units. Mild/mod ctx spaced out to Q3-4 FMVT, no ROM, No KLEIN, po fluids, good UO Feels less tired post sleep O: 120's/70's, no edema CVX - unchanged vs 06:30 - 2-3 cm/40%/-1/vtx/intact/soft bp and temp fine A: Maternal and wellbeing. No active labor despite >12 hrs pitocin - will cont till noontime and reeval - if continued no active labor will consider d/c to home to allow labor to kick in. BGS - adequate prophy GDM - sugars are good P: rest/cont pit - reeval at noon and plan f/u Addendum: Reeval and conversation with Issac - group decision making yielded agreement for d/c to home given lack of active labor. Close f/u as outpt or here for labor check as needed GDM - she will dose lantus at 75-80% in case labor ensues over the next few days. [facility] [place] Results Hemoglobin/Hematocrit: Hgb 13.3 g/dL (11.2-15.7) 05/09/23 15:05 Hct 38.0 % (36.0-46.0) 05/09/23 15:05 Abnormal Lab Findings: Abnormal Labs 05/09/23 15:05 Anion Gap 11.5 H Calcium 8.2 L Alkaline Phosphatase 133 H Albumin 2.6 L
--- NOTE | 2023-05-10 10:55 | DSE_ITS ---
Date of service: 05/10/23 Time of Service: 10:55 DS: Diagnosis Discharge Diagnosis (1) : Status: Acute (2) GDM, class A1: Status: Acute (3) Hypertension affecting in third trimester: Status: Acute (4) in person acting as gestational surrogate: Status: Acute Discharge Plan Disposition Patient Disposition: Home Condition: Good Discharge Details Reason For Visit: Elevated BP Admit Date/Time: 05/09/23 14:09 Admit Provider: Michael Coleman Attending Provider: Michael Coleman Primary Care Provider: Shanta Robin Home Meds and New Rx's Prescriptions: No Action insulin lispro [Humalog KwikPen Insulin] 100 unit/mL insulin pen 1 sliding scale dose subcut USEASDIRECTD insulin glargine [Lantus Solostar U-100 Insulin] 100 unit/mL (3 mL) insulin pen 60 unit subcut QPM Vitamin 27 mg iron- 0.8 mg Tablet 1 tab PO DAILY Discharge Instructions Activity:: Activity as Tolerated Equipment/Supplies:: No Equipment Needed Diet:: As Tolerated Discharge Orders Discharge Orders: Discharge Order (Routine); Ordered 05/10/23 Ordered By: Michael Coleman OB:DS Summary Contraception Discussed Contraception Discussed: No, Status at Discharge Functional status at discharge: independent ambulation Overall status at discharge: patient is back to baseline Mental Status: mental status grossly normal Speech and Movement: speech and movement normal Mood: congruent mood Affect: normal affect Exam Physical Exam Vital signs: Temp Pulse Resp BP Pulse Ox 36.8 C 95 H 18 125/71 97 05/10/23 10:02 05/10/23 10:54 05/10/23 10:02 05/10/23 10:02 05/09/23 15:19 Additional findings Additional findings: note last pn re lack of active labor, good sugars, intact membranes and Maternal wellbeing - plan home to allow labor to ensue naturally close f/u as outpt and here if labor/ROM. [place] PFSH All Active Problems in person acting as gestational surrogate (Acute) Hypertension affecting in third trimester (Acute) Strain of rectus abdominis muscle (Acute) (Acute) surrogacy - IVF Breech presentation (Acute) ECV 04/23/23 GDM, class A1 (Acute) On high doses of insulin Medical History ADHD Female hirsutism Patient referred to [facility] 05/15/2020. Migraine Polycystic ovarian syndrome Psoriasis Face, back, neck. Rx with PUVA w/o improvement. Right rotator cuff tendinitis Injected: 04/14/2019 Subacromial impingement of right shoulder Surgical History History of tubal ligation 05/10/2020. Laparoscopic bilateral salpingectomy. Social History Smoking/Tobacco Use Status: Former Tobacco Use Smoking risk assessment performed?: Yes Alcohol Intake: never Drug use: Never Substance use type: does not use Household members: significant other, children and other Details: Kasey Carrillo D-Evelyn Housing: house Number of Children: 2 current occupation: [employer] Do you feel safe at home: Yes Do you feel safe in your relationship?: Yes History History 3 Para Hx # Term Pregnancies 2 Multiple births Hx # Pregnancies Ectopic pregnancies AB induced Hx Number of Living Children 2 AB spontaneous Past Pregnancies Del. Date GA/Weeks # Preg Succ Route Wgt Sex Labor Lgth Anesth esia Location [facility] 03/19/18 40 No Yes vaginal 3373.593 g Male 9hrs [facility] [place] 03/29/20 37 No Yes vaginal 4053.982 g Female 9hrs [facility] [place] Delivery Date: 03/19/18 Last Updated by: Giana Cuellar MD Induction due to NRFHT Delivery Date: 03/29/20 Last Updated by: Giana Cuellar MD PROM DS: Data Vitals/I&O Vitals and I&O: Vital Signs Temperature 36.8 C 05/10/23 10:02 Temperature Source Oral 05/10/23 10:02 Pulse 95 H 05/10/23 10:54 Pulse Rhythm Regular 05/10/23 08:41 Respiratory Rate 18 05/10/23 10:02 Blood Pressure 125/71 05/10/23 10:02 Blood Pressure Mean 90 05/10/23 03:02 Pulse Oximetry 97 05/09/23 15:19 Oxygen Delivery Method Room Air 05/09/23 14:56 Oxygen Flow Rate 0 05/09/23 14:56 Pain Level 4 05/09/23 20:00 Comment pt just ambulated across room, will recheck BP 05/10/23 06:41 Intake & Output 05/09/23 05/09/23 05/10/23 11:59 23:59 11:59 Intake Total 1043.033 / 7129.310 8118.516 / 2065.516 Output Total 600 / 600 950 / 950 Balance 443.033 / 285.024 1594.516 / 1115.516 Weight 110.586 kg Intake: IV 343.033 / 259.823 2846.516 / 1865.516 Oral 700 / 700 200 / 200 Output: Urine 600 / 600 950 / 950 Other: Urine Color Yellow Data Completed and Pending Labs on day of discharge: Labs from last 24 hours 05/09/23 05/09/23 05/09/23 20:00 15:05 15:05 WBC RBC Hgb Hct MCV MCH MCHC RDW Plt Count MPV Sodium 138 Potassium 3.8 Chloride 105 Carbon Dioxide 21.5 Anion Gap 11.5 H BUN 10 Creatinine 0.6 Est GFR (CKD-EPI 2020) 122.23 Glucose 102 Uric Acid 4.8 Calcium 8.2 L Total Bilirubin 0.2 AST 15 ALT 17 Alkaline Phosphatase 133 H Total Protein 6.5 Albumin 2.6 L Ur Random Creatinine 115.47 U Random Total Protein 24.4 U [place] Prot/Creat Ratio 0.21 Patient ABO/Rh O Positive Antibody Screen NEGATIVE 05/09/23 15:05 WBC 10.27 RBC 4.20 Hgb 13.3 Hct 38.0 MCV 91 MCH 31.7 MCHC 35.0 RDW 12.6 Plt Count 200 MPV 11.0 Sodium Potassium Chloride Carbon Dioxide Anion Gap BUN Creatinine Est GFR (CKD-EPI 2020) Glucose Uric Acid Calcium Total Bilirubin AST ALT Alkaline Phosphatase Total Protein Albumin Ur Random Creatinine U Random Total Protein U [place] Prot/Creat Ratio Patient ABO/Rh Antibody Screen
== END 2023-05-10 11:50 | disposition home or self-care (01) | DRG 833 ==
PROVIDERS: Admitting Provider Family Medicine; PCP Family Medicine; Visit Provider Family Medicine
DX: O13.3 Gestational [pregnancy-induced] hypertension without significant proteinuria, third trimester (principal); O24.414 Gestational diabetes mellitus in pregnancy, insulin controlled; Z3A.38 38 weeks gestation of pregnancy; Z33.3 Pregnant state, gestational carrier; O99.283 Endocrine, nutritional and metabolic diseases complicating pregnancy, third trimester; O99.820 Streptococcus B carrier state complicating pregnancy; E28.2 Polycystic ovarian syndrome; L40.9 Psoriasis, unspecified; O99.353 Diseases of the nervous system complicating pregnancy, third trimester; G43.909 Migraine, unspecified, not intractable, without status migrainosus; O99.713 Diseases of the skin and subcutaneous tissue complicating pregnancy, third trimester
CPT/HCPCS: 80053; 85027; 86850; 86900; 86901; 82565; 84156; 84550; J2540

== ENCOUNTER 2023-05-11 18:05 | Outpatient (CLI) | payer BC, MEDICAID, SELFPAY ==
[2023-05-11 19:00] VITALS: BP 137/76; PULSE 94
--- NOTE | 2023-05-11 19:20 | W.OBNST ---
Date of service: 05/11/23 Time of Service: 19:21 NST Evaluation Reason for NST Reasons for Nonstress Test: FALSE LABOR Gestational Age Gestational Age in Weeks and Days: 38 Weeks and 4Days Test and Monitor Explained Test/Monitor Explained: Patient Verbalized Understanding Vital Signs Blood Pressure: 137/76 Pulse: 94 NST Information Date on Monitor: 05/11/23 Time on Monitor: 18:09 Date off Monitor: 05/11/23 Time off Monitor: 18:42 Total Time on Monitor: 33 NST Interventions: PO Hydration and Notify Provider NST Evaluation Patient States Movement: Present FHR Baseline: 130 Variability: Moderate 6-25 bpm Accelerations: 15x15 Decelerations: None NST Results: Reactive Note Ultrasound Done: N/A. NST Note Note: Shanah with sig ctx for ~1 hr approx 4pm to 5 pm. No settled and not present on the monitor Cervix unchanged from yesterday morning 2-3 cm/soft/-1/4-%/intact BP good GDM sugars are good too Cat 1 NST reviewed in person A: Maternal and wellbeing No active labor P: Cont labor precautions at home keep PN check scheduled for 05/12 Call or report sooner if questions, ROM, consistent ctx Will consider miso/pit/ROM when she gets to 39 weeks given GDM. Kristine Coleman NST Reviewed and Verified by: Michael Coleman
[2023-05-11 19:25] VITALS: BP 137/76; PULSE 94
== END 2023-05-11 19:22 | disposition home or self-care (01) ==
LOC: OBS 05-12 12:19 → BCD 05-12 12:19
PROVIDERS: PCP Family Medicine; Visit Provider Family Medicine
DX: O47.1 False labor at or after 37 completed weeks of gestation (principal); Z3A.38 38 weeks gestation of pregnancy
CPT/HCPCS: 99211; 59025

== ENCOUNTER 2023-05-13 18:00 | Inpatient (IN) | payer BC, MEDICAID, SELFPAY ==
[2023-05-13] VITALS (84 sets, daily range): BP systolic 133–134; BP diastolic 64–76; PULSE 0–119; RESP 17
--- NOTE | 2023-05-13 18:27 | W.PM.OBHPL1 ---
Date of service: 05/13/23 Time of Service: 18:27 OB-HPI Labor/Delivery History of Present Illness Reason for Visit: Labor Chief Complaint: Scheduled Induction of Labor Indication for Induction: Gestational Diabetes. NELLIE Calculator Estimated Delivery Date Method Current WG Current Estimate 05/20/23 Ultrasound #1 39w 0d Comments: Lisa here for staged induction. Note hx: well controlled GDM - A1 - lantus 65/pm GBS pos - Intact membranes Surrogate - Maxime and Thierno present and involved Lisa feels well - no KLEIN, visual changes, ctx, ROM. Good mvmt. Got good rest in past 36 hrs PO and UO good AVG glucose on 40 units lantus 120 O: BP 130/80 - stable past 7-10 days mild ctx q 3-6 on NOVI EFM Cat 1 NST Non-tender ut, vtx by leopolds and sono 05/12 ext - scant/trace ankle edema - unchanged past few days neg PIH labs 05/03 2X2 pocket fluid 05/12 A: and Maternal wellbeing. Given poor effect from >12 hrs Pit 5 days ago, will shift gears to miso orally and consider mechanical/lópez balloon - essentailly ripen cervix this sky and move to pit in near future. S. [place] History of Present Expected Delivery Route/Plan VD - [facility] Specific Issues/Plan 1. IVF surrogacy. (pt had prior salpingectomy) 2. GDM: insulin 3. Breech presentation - ECV scheduled 04/23/23 PFS All Active Problems in person acting as gestational surrogate (Acute) Hypertension affecting in third trimester (Acute) Strain of rectus abdominis muscle (Acute) (Acute) surrogacy - IVF Breech presentation (Acute) ECV 04/23/23 GDM, class A1 (Acute) On high doses of insulin Medical History ADHD Female hirsutism Patient referred to [facility] 05/15/2020. Migraine Polycystic ovarian syndrome Psoriasis Face, back, neck. Rx with PUVA w/o improvement. Right rotator cuff tendinitis Injected: 04/14/2019 Subacromial impingement of right shoulder Surgical History History of tubal ligation 05/10/2020. Laparoscopic bilateral salpingectomy. Social History Smoking/Tobacco Use Status: Former Tobacco Use Smoking risk assessment performed?: Yes Alcohol Intake: never Drug use: Never Substance use type: does not use Household members: significant other, children and other Details: HEENA-Kasey Kauffman, Sebastien Housing: house Number of Children: 2 current occupation: [employer] Do you feel safe at home: Yes Do you feel safe in your relationship?: Yes History History 3 Para Hx # Term Pregnancies 2 Multiple births Hx # Pregnancies Ectopic pregnancies AB induced Hx Number of Living Children 2 AB spontaneous Past Pregnancies Del. Date GA/Weeks # Preg Succ Route Wgt Sex Labor Lgth Anesthesia Location Prov Complic 03/19/18 40 No Yes vaginal 3373.593 g Male 9hrs [facility] [place] 03/29/20 37 No Yes vaginal 4053.982 g Female 9hrs [facility] [place] Delivery Date: 03/19/18 Last Updated by: Giana Cuellar MD Induction due to NRFHT Delivery Date: 03/29/20 Last Updated by: Giana Cuellar MD PROM Meds Allergies and Home Medications Allergies Allergy/AdvReac Type Severity Reaction Status Date / Time spironolactone AdvReac Intermediate Diarrhea Verified 05/09/23 19:53 metformin AdvReac Diarrhea Verified 05/09/23 19:53 Home Medications Medication Instructions Recorded Confirmed Type vitamins-iron fumarate 27 1 tab PO DAILY 03/28/20 05/09/23 History mg iron-folic acid 0.8 mg tablet ( Vitamin) insulin glargine 100 unit/mL (3 60 unit subcut QPM 04/16/23 05/09/23 History mL) subcutaneous pen (Lantus Solostar U-100 Insulin) insulin lispro 100 unit/mL 1 sliding scale dose subcut 04/16/23 05/09/23 History subcutaneous pen (Humalog KwikPen USEASDIRECTD (U-100) Insulin) Exam Detailed Labor and Delivery Exam Pedraza Score: Cervical Points Exam 0 1 2 3 Dilation Closed 1-2cm 3-4 cm 5-6cm Effacement 0-30% 40-50% 60-70% 80% Consistency Firm Medium Soft Station -3 -2 -1,0 +1,+2 Position Posterior Mid Anterior Risk Assessment Risks Reviewed Risks Reviewed Upon Admission: Yes
[2023-05-13] MEDS: miSOPROStol 50 MCG TAB 25 MCG PO ×2 (18:28→22:35)
--- NOTE | 2023-05-13 19:21 | W.PM.OBNL1 ---
Date of service: 05/13/23 Time of Service: 19:21 Objective Pulse 80 05/13/23 19:19 Subjective Interval history since last seen: not feeling occas ctx. We discussed pros/cons of Cook catheter as adjunct for cervical ripening in conjunction with oral miso. Lisa aware of tiny risks for ROM, hyperstim, FHT abnormalities. Maxime/Thierno fully present and part of conversation. Lisa wished to proceed. Catheter placed without complication - 60cc instilled in both prox and distal balloons. She tolerated well. Kristine Coleman
--- NOTE | 2023-05-13 21:33 | W.PM.OBNL1 ---
Date of service: 05/13/23 Time of Service: 21:33 Objective Pulse Resp BP 91 H 17 134/64 05/13/23 21:31 05/13/23 19:52 05/13/23 19:52 Laboratory Results WBC Cancelled 05/13/23 19:43 RBC Cancelled 05/13/23 19:43 Hgb Cancelled 05/13/23 19:43 Hct Cancelled 05/13/23 19:43 MCV Cancelled 05/13/23 19:43 MCH Cancelled 05/13/23 19:43 MCHC Cancelled 05/13/23 19:43 RDW Cancelled 05/13/23 19:43 Plt Count Cancelled 05/13/23 19:43 MPV Cancelled 05/13/23 19:43 Patient ABO/Rh Cancelled 05/13/23 19:43 Subjective Interval history since last seen: Comfortable in shower on birthing ball. Nitrous available, not using, yet. Ctx mild/mod - Q2-3 at this point No KLEIN, ROM 0: BP 120's 70's comfortable in shower FHT - mod variability, Cat 1 ctx - q2-3 mild/mod sugar 112 - due for evening lantus Taking PO and good UO Cook catheter in place now for 3+ hrs A: Maternal and wellbeing Early vs prodromal labor GDM - good control - will order lantus for this evening GBS - add prophy abx once clearly in active labor - not there, yet P: Second dose miso at 10:30 - 4 hrs from last dose. Expect Parents present, supportive and engaged. [place]. [place] Results Hemoglobin/Hematocrit: Hgb Cancelled 05/13/23 19:43 Hct Cancelled 05/13/23 19:43
[2023-05-13] MEDS: Insulin Glargine 300 UNITS/3 ML PEN 30 UNITS SC (22:34)
[2023-05-14] VITALS (226 sets, daily range): BP systolic 95–166; BP diastolic 52–100; PULSE 0–157; RESP 16–18; TEMP 36.6–36.9; O2SAT 97–99
--- NOTE | 2023-05-14 02:36 | W.PM.OBNL1 ---
Date of service: 05/14/23 Time of Service: 02:36 Objective Pulse Resp BP 94 H 17 133/76 05/14/23 00:31 05/13/23 19:52 05/13/23 23:09 Laboratory Results WBC Cancelled 05/13/23 19:43 RBC Cancelled 05/13/23 19:43 Hgb Cancelled 05/13/23 19:43 Hct Cancelled 05/13/23 19:43 MCV Cancelled 05/13/23 19:43 MCH Cancelled 05/13/23 19:43 MCHC Cancelled 05/13/23 19:43 RDW Cancelled 05/13/23 19:43 Plt Count Cancelled 05/13/23 19:43 MPV Cancelled 05/13/23 19:43 Patient ABO/Rh Cancelled 05/13/23 19:43 Subjective Interval history since last seen: Time in shower and tub. Now sound asleep. Awoke to pee - Cook cath fell out. Scant ctx, no ROM, BP good 120's/70's O: Comfortable FHT - by doppler good variability, no decels CVX now 3-4, stretchy, 50%, -1, vtx A: and Maternal wellbeing Not in active labor - remains early/prodromal GDM - sugars = good - 220 right now due to pizza for supper and lower lantus dose this evening. GBS - when in active labor will start IV prophy abx P: Discussed three options of home, or third miso dose, or starting pitocin given cervical change. Lisa feels strongly that she does not want to go home 'without having given '. She knows well the pros/cons pit - hyperstim, uterine tear - from prior pitocin conversations/consent. She prefers initiation of pitocin at this point. Place IV/HL - start pit, abx when labor starts. [place] [place] Results Hemoglobin/Hematocrit: Hgb Cancelled 05/13/23 19:43 Hct Cancelled 05/13/23 19:43
[2023-05-14 04:01] LABS: HCT 36.8 % (36.0-46.0); HGB 12.7 g/dL (11.2-15.7); MCH 31.7 pg (27.0-33.0); MCHC 34.5 % (32.0-36.0); MCV 92 fL (80-95); Platelet Count 178 10^3/uL (130-400); RBC 4.01 10^6/uL (3.93-5.22); RDW 12.6 % (11.7-14.6); RDW-SD 41.9 fL; WBC 9.61 10^3/uL (4.4-10.8)
[2023-05-14] MEDS: Oxytocin/Normal Saline 30 UNIT/500 ML BAG 2 UNITS IV (04:13)
[2023-05-14] MEDS: Calcium Carbonate *TUMS* 500 MG CHEW 1000 MG PO (05:20)
--- NOTE | 2023-05-14 07:17 | PGE_ITS ---
Date of service: 05/14/23 Time of Service: 07:17 Objective Pulse Resp BP 82 17 133/76 05/14/23 07:14 05/13/23 19:52 05/13/23 23:09 Laboratory Results WBC 9.61 10^3/uL (4.4-10.8) 05/14/23 03:51 RBC 4.01 10^6/uL (3.93-5.22) 05/14/23 03:51 Hgb 12.7 g/dL (11.2-15.7) 05/14/23 03:51 Hct 36.8 % (36.0-46.0) 05/14/23 03:51 MCV 92 fL (80-95) 05/14/23 03:51 MCH 31.7 pg (27.0-33.0) 05/14/23 03:51 MCHC 34.5 % (32.0-36.0) 05/14/23 03:51 RDW 12.6 % (11.7-14.6) 05/14/23 03:51 Plt Count 178 10^3/uL (130-400) 05/14/23 03:51 MPV 11.0 fL (8.0-11.0) 05/14/23 03:51 Patient ABO/Rh O Positive 05/14/23 03:51 Antibody Screen NEGATIVE 05/14/23 03:51 Subjective Interval history since last seen: Ctx more intense, using nitrous. Pit @ ~10. Good FMVT, no ROM sugars ~200 - taking PO well, good UO. got some sleep - not exhausted O: FHT - good variability, baseline unchanged 3 variables to 90 CVX - 4-5 stretchy, soft, 60%, vtx, membranes palpated, 0 station ext - unchanged trace edema BP 120's/70's A: Some cervical change and station drop with past ~2 hrs IV pit. Maternal and wellbeing GDM - sugars atable GBS - IV abx to start given pattern transitioning to active P: Expect cont pit - increase to get steonger ctx - they have moved from mild to mod in p ast hour or so. Once IV abx on board, may consider ROM to help intensify ctx/labor. S. Genereaux Results Hemoglobin/Hematocrit: Hgb 12.7 g/dL (11.2-15.7) 05/14/23 03:51 Hct 36.8 % (36.0-46.0) 05/14/23 03:51
[2023-05-14] MEDS: Penicillin G POT. 5,000,000 UNITS in Normal Saline 100 ML 200 UNITS IVPB (07:50)
--- NOTE | 2023-05-14 09:12 | W.PM.OBNL1 ---
Date of service: 05/14/23 Time of Service: 09:12 Objective Temp Pulse Resp BP Pulse Ox 36.6 C 89 18 119/58 L 97 05/14/23 07:25 05/14/23 09:10 05/14/23 07:25 05/14/23 07:25 05/14/23 07:25 Laboratory Results WBC 9.61 10^3/uL (4.4-10.8) 05/14/23 03:51 RBC 4.01 10^6/uL (3.93-5.22) 05/14/23 03:51 Hgb 12.7 g/dL (11.2-15.7) 05/14/23 03:51 Hct 36.8 % (36.0-46.0) 05/14/23 03:51 MCV 92 fL (80-95) 05/14/23 03:51 MCH 31.7 pg (27.0-33.0) 05/14/23 03:51 MCHC 34.5 % (32.0-36.0) 05/14/23 03:51 RDW 12.6 % (11.7-14.6) 05/14/23 03:51 Plt Count 178 10^3/uL (130-400) 05/14/23 03:51 MPV 11.0 fL (8.0-11.0) 05/14/23 03:51 Patient ABO/Rh O Positive 05/14/23 03:51 Antibody Screen NEGATIVE 05/14/23 03:51 Subjective Interval history since last seen: Tolerating well with nitrous. Up to pee - copious bloody show no KLEIN Asking re epidural - leaning towards when/if nitrous less effective Good FMvt O: 119/58 sugar 160 - pizza and less lantus dose last noc. taking PO ice chips well Firm fundus with ctx - mod CVX - soft/6 cm/70%/intact/vtx/0 station FHT - good variability, no decels A: Active labor - Maternal and wellbeing GBS - s/p loading dose, due for second dose ~11:15 GDM - sugars reasonable given stage of labor, lower lantus dose and pizza late last noc P: Cont pit, nitrous, position changes - expect . Epidural if/when she requests Consider AROM after second abx dose. S. [place] Results Hemoglobin/Hematocrit: Hgb 12.7 g/dL (11.2-15.7) 05/14/23 03:51 Hct 36.8 % (36.0-46.0) 05/14/23 03:51
--- NOTE | 2023-05-14 11:12 | W.PM.OBNL1 ---
Date of service: 05/14/23 Time of Service: 11:12 Objective Temp Pulse Resp BP Pulse Ox 36.6 C 82 18 136/76 97 05/14/23 07:25 05/14/23 11:10 05/14/23 07:25 05/14/23 11:08 05/14/23 07:25 Laboratory Results WBC 9.61 10^3/uL (4.4-10.8) 05/14/23 03:51 RBC 4.01 10^6/uL (3.93-5.22) 05/14/23 03:51 Hgb 12.7 g/dL (11.2-15.7) 05/14/23 03:51 Hct 36.8 % (36.0-46.0) 05/14/23 03:51 MCV 92 fL (80-95) 05/14/23 03:51 MCH 31.7 pg (27.0-33.0) 05/14/23 03:51 MCHC 34.5 % (32.0-36.0) 05/14/23 03:51 RDW 12.6 % (11.7-14.6) 05/14/23 03:51 Plt Count 178 10^3/uL (130-400) 05/14/23 03:51 MPV 11.0 fL (8.0-11.0) 05/14/23 03:51 Patient ABO/Rh O Positive 05/14/23 03:51 Antibody Screen NEGATIVE 05/14/23 03:51 Subjective Interval history since last seen: Epidural placed - tolerated well - BP and pulse stable throughout. Mod ctx q 3, bloody show Puked minimally, good UO sugars 140-160's O: 140/80 during epidural placement - 120/60 post - baseline FHT - good variability, no decels A: Active labor - epidural seems to be increasingly effective - setting up. and Maternal wellbeing GDM - stable sugars GBS - second dose starting shortly P: Expect Shanah aware that AROM might help advance labor and shorten time to delivery. Will recheck cervix post abx infusion. S. [place] Results Hemoglobin/Hematocrit: Hgb 12.7 g/dL (11.2-15.7) 05/14/23 03:51 Hct 36.8 % (36.0-46.0) 05/14/23 03:51
--- NOTE | 2023-05-14 11:25 | W.ANESNEU ---
Epidural/Spinal Catheter Date Performed: 05/14/23 Procedure Start: 10:40 Procedure Stop: 11:07 Requesting Provider: Michael Coleman Procedure Location: Obstetrics (room 300) Reason Performed: Labor Epidural Standard Monitors Applied: ECG, Blood Pressure, SpO2 and See EMR for corresponding vital signs Patient Position: Sitting Sedation Given (Indicate Dose Given): No Sedation given Patient Mental Status: Awake Sterility: Hand Hygiene, Surgical Cap, Surgical Mask, Sterile Gloves, Sterile Drape/Sheet, Eye Protection and Chlorhexidine Procedure Location: L3-L4 Interspace Epidural Needle: Tuohy 18 Gauge Needle Length: 3.5 Inch Needle Approach: Midline Epidural Procedure: Skin Prepped, Sterile Drape Placed, 1% Lidocaine to skin and subcutaneous tissue with 25G needle, Tuohy Needle placed, LEO to Saline Used, Negative Heme, Negative CSF Flow and Tuohy Needle Removed Catheter Placed?: Catheter Placed Test Dose (Indicate Dose Given): 3ml 1.5% Lidocaine with 1:200K Epinephrine Given and Negative Test Dose Loss of Resistance Depth (cm): 7 Catheter depth at skin (cm): 12 Dressing: Tegaderm Applied and Dressing reinforced with Tape Epidural Provider Bolus (Indicate Dose Given): Total Ropivacaine 0.1% with Fentanyl 2mcg/ml Given from pump. (ml) Dose:: 7cc Additives (Indicate Dose Given ): None Infusion Medication: Medication Infusion Began Medication Infusion: Ropivacaine 0.1% with Fentanyl 2mcg/ml Maintenance Infusion Rate (ml/hour): 9 PCEA Bolus Dose (ml): 4 Block Level: T8 Paresthesia: None Ultrasound: Used to joyec site Number of Attempts (See previous attempts in note section): 1 Procedure Tolerated: No Complications and Patient tolerated well Procedure Outcome: Successful Performed By: Carlyle Desai
--- NOTE | 2023-05-14 12:40 | W.PM.OBNL1 ---
Date of service: 05/14/23 Time of Service: 12:40 Objective Temp Pulse Resp BP Pulse Ox 36.6 C 76 18 99/55 L 97 05/14/23 07:25 05/14/23 12:38 05/14/23 11:30 05/14/23 12:38 05/14/23 07:25 Laboratory Results WBC 9.61 10^3/uL (4.4-10.8) 05/14/23 03:51 RBC 4.01 10^6/uL (3.93-5.22) 05/14/23 03:51 Hgb 12.7 g/dL (11.2-15.7) 05/14/23 03:51 Hct 36.8 % (36.0-46.0) 05/14/23 03:51 MCV 92 fL (80-95) 05/14/23 03:51 MCH 31.7 pg (27.0-33.0) 05/14/23 03:51 MCHC 34.5 % (32.0-36.0) 05/14/23 03:51 RDW 12.6 % (11.7-14.6) 05/14/23 03:51 Plt Count 178 10^3/uL (130-400) 05/14/23 03:51 MPV 11.0 fL (8.0-11.0) 05/14/23 03:51 Patient ABO/Rh O Positive 05/14/23 03:51 Antibody Screen NEGATIVE 05/14/23 03:51 Subjective Interval history since last seen: AROM - clear scant d/c - continued bloody show sugar 136 Very comfortable with effective epidural and lópez in place pit at 18 generating ctx q2-3 O: cvx - stretchy/80%/7 cm/ +1 station, OA, VTX 99/58 FHT - good variability - decels to 90 - recovers to 120 A: Labor progressing, slowly - some cervical dilation and effaciement and Maternal well being P: Cont position changes, dec pit, IV fluid bolus Expect Cont GBS prophy S. [place] Results Hemoglobin/Hematocrit: Hgb 12.7 g/dL (11.2-15.7) 05/14/23 03:51 Hct 36.8 % (36.0-46.0) 05/14/23 03:51
--- NOTE | 2023-05-14 13:03 | PGE_ITS ---
Date of service: 05/14/23 Time of Service: 13:03 Objective Temp Pulse Resp BP Pulse Ox 36.6 C 76 18 136/65 97 05/14/23 07:25 05/14/23 12:59 05/14/23 11:30 05/14/23 12:53 05/14/23 07:25 Laboratory Results WBC 9.61 10^3/uL (4.4-10.8) 05/14/23 03:51 RBC 4.01 10^6/uL (3.93-5.22) 05/14/23 03:51 Hgb 12.7 g/dL (11.2-15.7) 05/14/23 03:51 Hct 36.8 % (36.0-46.0) 05/14/23 03:51 MCV 92 fL (80-95) 05/14/23 03:51 MCH 31.7 pg (27.0-33.0) 05/14/23 03:51 MCHC 34.5 % (32.0-36.0) 05/14/23 03:51 RDW 12.6 % (11.7-14.6) 05/14/23 03:51 Plt Count 178 10^3/uL (130-400) 05/14/23 03:51 MPV 11.0 fL (8.0-11.0) 05/14/23 03:51 Patient ABO/Rh O Positive 05/14/23 03:51 Antibody Screen NEGATIVE 05/14/23 03:51 Subjective Interval history since last seen: Quite comfortable with ctx - epidural effective. Transient FHT decel resolved with scalp stim, position changes, fluid bolus O: BP 99/62, CVX - thin 90%/+1 station/9 cm/VTX/no mec FHT - as above A: and Maternal wellbeing. Active labor Second stage huddle happened with Thierno Swartz Shanah, Madiha and David ([facility] P: Expect Cut epidural rate in 1/2 to improve her ability to push Cont IV abx - has adequate prophy at this point. Cont sugar monitoring - stable all day. S. [place] Results Hemoglobin/Hematocrit: Hgb 12.7 g/dL (11.2-15.7) 05/14/23 03:51 Hct 36.8 % (36.0-46.0) 05/14/23 03:51
--- NOTE | 2023-05-14 13:49 | W.PM.OBNL1 ---
Date of service: 05/14/23 Time of Service: 13:49 Objective Temp Pulse Resp BP Pulse Ox 36.6 C 82 18 122/75 97 05/14/23 07:25 05/14/23 13:47 05/14/23 11:30 05/14/23 13:28 05/14/23 07:25 Laboratory Results WBC 9.61 10^3/uL (4.4-10.8) 05/14/23 03:51 RBC 4.01 10^6/uL (3.93-5.22) 05/14/23 03:51 Hgb 12.7 g/dL (11.2-15.7) 05/14/23 03:51 Hct 36.8 % (36.0-46.0) 05/14/23 03:51 MCV 92 fL (80-95) 05/14/23 03:51 MCH 31.7 pg (27.0-33.0) 05/14/23 03:51 MCHC 34.5 % (32.0-36.0) 05/14/23 03:51 RDW 12.6 % (11.7-14.6) 05/14/23 03:51 Plt Count 178 10^3/uL (130-400) 05/14/23 03:51 MPV 11.0 fL (8.0-11.0) 05/14/23 03:51 Patient ABO/Rh O Positive 05/14/23 03:51 Antibody Screen NEGATIVE 05/14/23 03:51 Subjective Interval history since last seen: Very comfortable with effective epidural. Feeling some pressure, no pain. Scant AF, continuous bloody show O: ant lip/100%/+1 station/vtx BP's good - 100/60 good presenting part mvmt with maternal push FHT - 120-130 no decels A: and Maternal wellbeing - Transitioning to second stage - good descent even with lower pit dose Second stage huddanny reviewed risk for PPH and SD due to GDM and pit induction. P: Expect - staff and parents present and supportive. Anes not available to cut epidural rate - Lisa would prefer continuing nitrous if epidural rate decreased or d/c'd. S. [place] Results Hemoglobin/Hematocrit: Hgb 12.7 g/dL (11.2-15.7) 05/14/23 03:51 Hct 36.8 % (36.0-46.0) 05/14/23 03:51
--- NOTE | 2023-05-14 14:43 | W.PM.OBNL1 ---
Date of service: 05/14/23 Time of Service: 14:43 Objective Temp Pulse Resp BP Pulse Ox 36.6 C 74 18 112/64 97 05/14/23 07:25 05/14/23 14:39 05/14/23 14:31 05/14/23 14:09 05/14/23 07:25 Laboratory Results WBC 9.61 10^3/uL (4.4-10.8) 05/14/23 03:51 RBC 4.01 10^6/uL (3.93-5.22) 05/14/23 03:51 Hgb 12.7 g/dL (11.2-15.7) 05/14/23 03:51 Hct 36.8 % (36.0-46.0) 05/14/23 03:51 MCV 92 fL (80-95) 05/14/23 03:51 MCH 31.7 pg (27.0-33.0) 05/14/23 03:51 MCHC 34.5 % (32.0-36.0) 05/14/23 03:51 RDW 12.6 % (11.7-14.6) 05/14/23 03:51 Plt Count 178 10^3/uL (130-400) 05/14/23 03:51 MPV 11.0 fL (8.0-11.0) 05/14/23 03:51 Patient ABO/Rh O Positive 05/14/23 03:51 Antibody Screen NEGATIVE 05/14/23 03:51 Subjective Interval history since last seen: Ant lip gone ~2:20 pm - pushing/second stage for past 20 min - tolerating - epidural effective not feeling 100% ctx - with verbal cuing she is able to coordinate pushing. Transient FHT decels to 85/90 - none for past 10 min - 120's now. scant AF - some bloody show A: Second stage - pushing effectively so far. Maternal and wellbeing. 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 S. [place] Results Hemoglobin/Hematocrit: Hgb 12.7 g/dL (11.2-15.7) 05/14/23 03:51 Hct 36.8 % (36.0-46.0) 05/14/23 03:51
--- NOTE | 2023-05-14 15:57 | OBVDS_ITS ---
Date of service: 05/14/23 Time of Service: 15:57 OB Labor/ Delivery Information Providers Doctor: Michael Coleman Pattern Grader Supervisor: Carlyle Desai Nurse: Vivian Fields Nurse: Silvia Santamaria Other: Medical student David Labor/Delivery Information Number of Babies in Womb: 1 Steroids Given: None Reason Steroids Not Administered: N/A Group Beta Strep: Positive Antibiotics Administered: Yes Number of Doses of Antibiotics: 2 Rubella Status: Immune Blood Type: O+ Varicella Immunity: Not Tested Maternal Complications: None Stages of Labor Onset of Labor Date: 05/13/23 Onset of Labor Time: 18:28 Complete Dilatation Date: 05/14/23 Complete Dilatation Time: 14:22 Labor - Stage 1 Duration: 19 hours and 54 minutes ROM Baby A: 05/14/23 ROM Baby A: 12:20 Infant Delivery Date-Baby A: 05/14/23 Delivery Time-Baby A: 15:36 Labor Stage 2 Duration: 1 hours and 14 minutes Placenta Delivery Date-Baby A: 05/14/23 Placenta Delivery Time-Baby A: 15:42 Labor-Stage 3 Duration: 6 minutes Total Length of Labor-Baby A: 21 hours and 8 minutes Placenta Cultured: No Baby A Gestational Age in Weeks/Days: 39 Weeks and 1 Days Score-1 Minute Interval(Baby A) Heart Rate-1 minute: 100 BPM or Greater Respiratory Effort- 1 minute: Spontaneous/Strong Cry Muscle Tone-1 minute: Active Movement Reflex Response-1 minute: Prompt Response Color-1 minute: Pallor or Cyanosis Score-5 Minute Interval(Baby A) Heart Rate- 5 minute: 100 BPM or Greater Respiratory Effort-5 minute: Spontaneous/Strong Cry Muscle Tone-5 minute: Active Movement Reflex Response-5 minute: Prompt Response Color-5 minute: Bluish Hands or Feet Note: Term (39) w induced due to GDM - well controlled. Miso and cook catheter followed by pitocin for 11 hrs yielded Vigorous male, spont resp, HR >100. Nuchal cord times one - easily reduced Crowned - excellent control - restituted with easy R shoulder as anterior delayed cord clamp. Spont intact placenta with 3 VC - bloods obtained. Firm fundus with IV and IM pit - palpated at the umbilicus. EBL 400 cc - minimal No lacs or tears - no repair Rectum, vag sidewalls, perineum and labia all intact Epidural off - no PPH, SD or interventions. Plan: inc activity and consider early d/c per pat needs/goals. Kristine Coleman
--- NOTE | 2023-05-14 18:01 | W.ANESNEU ---
Epidural/Spinal Cath. Removal Date Performed: 05/14/23 Procedure Time: 18:01 Catheter Removal Type: Epidural Catheter Procedure Location: Obstetrics Patient Position: Sitting Catheter Removal Procedure: Dressing Removed, Catheter Removed without Resistance and Catheter Tip Intact Paresthesia: None Procedure Tolerated: No Complications Procedure Outcome: Successful Performed By: Carlyle Desai
[2023-05-14] MEDS: Hamamelis Leaf/Glycerin 100 EACH BOX PR (18:40)
[2023-05-15] MEDS: Ibuprofen 600 MG TAB PO ×2 (01:42→08:28)
[2023-05-15] MEDS: Acetaminophen 325 MG TAB 650 MG PO ×2 (01:42→08:28)
[2023-05-15 01:58] VITALS: BP 117/76; PULSE 77; RESP 18
--- NOTE | 2023-05-15 07:48 | DSE_ITS ---
Date of service: 05/15/23 Time of Service: 07:48 Discharge Plan Discharge Details Reason For Visit: Labor Admit Date/Time: 05/13/23 18:00 Admit Provider: Michael Coleman Attending Provider: Michael Coleman Primary Care Provider: Shanta Robin Home Meds and New Rx's Prescriptions: No Action insulin lispro [Humalog KwikPen Insulin] 100 unit/mL insulin pen 1 sliding scale dose subcut USEASDIRECTD insulin glargine [Lantus Solostar U-100 Insulin] 100 unit/mL (3 mL) insulin pen 60 unit subcut QPM Vitamin 27 mg iron- 0.8 mg Tablet 1 tab PO DAILY OB:DS Summary Summary Episiotomy Description: None Laceration Description: None Laceration Extension: N/A Contraception Discussed Contraception Discussed: Yes, Infant Gender-Baby A: Male weight: 3575 g Status at Discharge Functional status at discharge: independent ambulation Overall status at discharge: patient is back to baseline Mental Status: mental status grossly normal Speech and Movement: speech and movement normal Mood: congruent mood Affect: normal affect Exam Physical Exam Vital signs: Temp Pulse Resp BP Pulse Ox 36.9 C 77 18 117/76 99 05/14/23 20:00 05/15/23 01:58 05/15/23 01:58 05/15/23 01:58 05/14/23 18:45 Narrative: Lisa delivered a vigorous male over intact perineum ~3 pm 05/14. Post couse strightforward - minimal lochia, one dose tylenol for cramping She is pumping to supply collostrum to infant. No fever. Sugars 96 this AM, fasting on no lantus She is s/p tubal - no Family planning needs Will take PN vits at home on d/c. O: Bp 117/76 fundus firm, non-tender at umb, no labial or perineal trauma A: S/P GDM - already resolving P: Cont Breast pumping support Home today Close f/u as outpt re sugars PN vits fdaily. Kristine Coleman PFSH All Active Problems in person acting as gestational surrogate (Acute) Hypertension affecting in third trimester (Acute) Strain of rectus abdominis muscle (Acute) (Acute) surrogacy - IVF Breech presentation (Acute) ECV 04/23/23 GDM, class A1 (Acute) On high doses of insulin Medical History ADHD Female hirsutism Patient referred to [facility] 05/15/2020. Migraine Polycystic ovarian syndrome Psoriasis Face, back, neck. Rx with [facility] w/o improvement. Right rotator cuff tendinitis Injected: 04/14/2019 Subacromial impingement of right shoulder Surgical History History of tubal ligation 05/10/2020. Laparoscopic bilateral salpingectomy. Social History Smoking/Tobacco Use Status: Former Tobacco Use Smoking risk assessment performed?: Yes Alcohol Intake: never Drug use: Never Substance use type: does not use Household members: significant other, children and other Details: Kasey Carrillo D-Evelyn Housing: house Number of Children: 2 current occupation: [employer] Do you feel safe at home: Yes Do you feel safe in your relationship?: Yes History History 3 Para 2 Hx # Term Pregnancies 2 Multiple births Hx # Pregnancies Ectopic pregnancies AB induced Hx Number of Living Children 2 AB spontaneous Past Pregnancies Del. Date GA/Weeks # Preg Succ Route Wgt Sex Labor Lgth Anesth esia Location Prov [facility] 03/19/18 40 No Yes vaginal 3373.593 g Male 9hrs [facility] [place] 03/29/20 37 No Yes vaginal 4053.982 g Female 9hrs [facility] [place] Delivery Date: 03/19/18 Last Updated by: Giana Cuellar MD Induction due to NRFHT Delivery Date: 03/29/20 Last Updated by: Giana Cuellar MD PROM DS: Data Vitals/I&O Vitals and I&O: Vital Signs Temperature 36.9 C 05/14/23 20:00 Temperature Source Oral 05/14/23 20:00 Pulse 77 05/15/23 01:58 Pulse Rhythm Regular 05/14/23 07:25 Respiratory Rate 18 05/15/23 01:58 Blood Pressure 117/76 05/15/23 01:58 Blood Pressure Mean 89 05/15/23 01:58 Pulse Oximetry 99 05/14/23 18:45 Oxygen Delivery Method Room Air 05/13/23 19:52 Oxygen Flow Rate 0 05/13/23 19:52 Pain Level 6 05/15/23 01:42 Intake & Output 05/14/23 05/14/23 05/15/23 11:59 23:59 11:59 Intake Total 63.333 / 101.433 38.1 / 101.433 Output Total 650 / 1650 1000 / 1650 1000 / 1000 Balance -586.667 / -1548.567 -961.9 / -1548.567 -1000 / -1000 Intake: IV 63.333 / 101.433 38.1 / 101.433 Output: Urine 650 / 1650 1000 / 1650 1000 / 1000 Other: Urine Color Dark Kitty Yellow Urine Appearance Clear Clear Urine Odor None Comment Gutiérrez inserted Voiding Methods Toilet
[2023-05-15] MEDS: Docusate Sodium 100 MG CAP PO (08:28)
[2023-05-15 09:16] VITALS: BP 129/89; PULSE 72; RESP 16; TEMP 36.7; O2SAT 99
[2023-05-15] MEDS: Dibucaine 1% 28 GM TUBE (10:00)
[2023-05-15] MEDS: Hamamelis Leaf/Glycerin 100 EACH BOX PR (10:00)
== END 2023-05-15 10:15 | disposition home or self-care (01) | DRG 807 ==
PROVIDERS: Admitting Provider Family Medicine; PCP Family Medicine; Visit Provider Family Medicine
DX: O99.824 Streptococcus B carrier state complicating childbirth (principal); Z37.0 Single live birth; O24.424 Gestational diabetes mellitus in childbirth, insulin controlled; Z3A.39 39 weeks gestation of pregnancy; Z33.3 Pregnant state, gestational carrier; O99.284 Endocrine, nutritional and metabolic diseases complicating childbirth; E28.2 Polycystic ovarian syndrome; O99.354 Diseases of the nervous system complicating childbirth; G43.909 Migraine, unspecified, not intractable, without status migrainosus; O99.344 Other mental disorders complicating childbirth; F90.9 Attention-deficit hyperactivity disorder, unspecified type; O99.72 Diseases of the skin and subcutaneous tissue complicating childbirth; L40.9 Psoriasis, unspecified; Z87.891 Personal history of nicotine dependence
CPT/HCPCS: 59200; 36415; 85027; 86850; 86900; 86901; J2540

== ENCOUNTER 2024-11-24 01:46 | Outpatient (CLI) | payer MEDICAID, SELFPAY ==
--- NOTE | 2024-11-24 06:45 | DI.MRI_ITS ---
Exam(s) MR BRAIN WO EXAM: MR BRAIN WO CLINICAL HISTORY: new KLEIN and vision changes,palinopsia,h53.8,r51.9 TECHNIQUE: Multiplanar multisequence MRI of the brain was performed. COMPARISON: MR MRA HEAD W/O CONTRAST from 08/15/2018 FINDINGS: VENTRICLES AND EXTRA AXIAL SPACES: Normal in size and morphology for the patient's age. MIDLINE SHIFT: None. CEREBRAL PARENCHYMA: No focus of restricted diffusion to suggest acute infarct. No space-occupying le gladys identified. No abnormal high signal lesions in the white matter.. BRAINSTEM/CEREBELLUM: Normal. VISUALIZED PARANASAL SINUSES: Clear. MASTOIDS:Clear. Vasculature: Normal flow void. PITUITARY GLAND: There is a 5 millimeter high signal area in the region of the posterior pituitary. This is only well seen on the T2 sagittal sequence. Findings may represent a prominent posterior pit uitary bright spot versus cyst. This is not impinge on the optic chiasm. ORBITS: Unremarkable. IMPRESSION: Prominent posterior pituitary bright spot versus pituitary cyst. Pituitary MRI be performed for furt her evaluation. DATA REPOSITORY:
== END 2024-11-24 02:06 ==
LOC: DI 01:46
PROVIDERS: PCP Family Medicine; Visit Provider Psychiatry & Neurology Neurology
DX: R51.9 Headache, unspecified (principal); H53.8 Other visual disturbances
CPT/HCPCS: 70551

== ENCOUNTER 2024-12-20 01:50 | Outpatient (CLI) | payer MEDICAID, SELFPAY ==
--- NOTE | 2024-12-20 07:15 | DI.MRI_ITS ---
Exam(s) MR BRAIN PITUITARY WO/W EXAM: MR BRAIN PITUITARY WO/W CLINICAL HISTORY: ? pituitary cyst,pituitary abnormality,e23.7 TECHNIQUE: Multiplanar multisequence MRI of the brain was performed 1.5 ina unit with pituitary pr otocol. Both noninfused and contrast infused sequences were performed. IV Contrast injected was 17 cc Dotarem. COMPARISON: MR MR BRAIN WO from 11/24/2024 FINDINGS: PITUITARY GLAND: There is an abnormal cystic appearing (nonenhancing) lesion in the posterior pituita ry/neurohypophysis which measures 9 mm wide x 3.5 mm AP x 5 mm height, this located behind the pituit per infundibulum/stalk and compressing the normal bright T1 spot of the neurohypophysis. There is no mass in the anterior pituitary/adenohypophysis (which is located anterior to the infundibulum). The superior contour of the posterior pituitary is slightly prominent because of this finding, extending 3 mm above the dorsum sella but still remaining 3 mm below the inferior aspect of the optic chiasm. The superior contour of the anterior pituitary/adenoid remains unremarkable/concave. The infundibul um is not deviated. There is no extension of this mass into the cavernous sinuses. No downward exte nsion into the sphenoid sinus and there is no dehiscence of the adjacent osseous dorsum sella. FLOW VOIDS: The expected flow void are noted. No evidence of obvious aneurysm nor obvious vascular ma lformation. PARANASAL SINUSES: The visualized paranasal sinuses appear unremarkable. ORBITS: No obvious abnormal findings. IMPRESSION: 1. There is a well-defined nonenhancing cystic lesion which appears to be confined to the posterior p ituitary (neurohypophysis), this mass measuring 9 mm wide by 3.5 mm AP by 5 mm height, causing elevat ion of the contour superior aspect of the posterior pituitary behind the pituitary infundibulum, exte nding slightly upwards into the posterior aspect of the suprasellar cistern (3 mm) but not contacting the optic chiasm. There is no associated extension into the cavernous sinuses nor abnormality of th e immediately adjacent dorsum sella. DATA REPOSITORY:
[2024-12-20] MEDS: Gadoterate meglumine 20 ML SYRINGE IVP (10:42)
[2024-12-20] MEDS: Normal Saline Flush 10 ML SYR IJ (10:43)
== END 2024-12-20 02:10 ==
LOC: DI 01:50
PROVIDERS: PCP Family Medicine; Visit Provider Psychiatry & Neurology Neurology
DX: E23.7 Disorder of pituitary gland, unspecified (principal)
CPT/HCPCS: 70553